=== PATIENT | female | born 1940 | race Caucasian/White ===

== ENCOUNTER 2017-09-06 09:10 | Inpatient (IN) | payer MEDICARE, BC ==
[2017-09-06 10:15] LABS: #Eosinphils 0.2 thou/uL (0.0-0.7); #Lymphocytes 0.8 thou/uL (1.20-3.40); #Monocytes 0.6 thou/uL (0.11-0.59); #Neutrophils 8.2 thou/uL (1.40-6.50); %Basophils 0.2 % (0.0-1.0); %Eosinophils 1.6 % (0.0-10.0); %Lymphocytes 8.2 % (21.0-51.0); %Monocytes 6.1 % (0.0-10.0); %Neutrophils 83.9 % (42.0-75.0); Hemoglobin 14.1 g/dL (12.0-16.0); Mean Corpuscular HGB CONC 34.1 g/dL (32.0-36.0); Mean Corpuscular Hemoglobin 29.6 pg (27.0-31.0); Mean Corpuscular Volume 86.8 fl (81.0-99.0); Mean Platelet Volume 8.2 fL (7.4-10.4); Platelet Count 259 thou/uL (130-400); RBC Distribution Width 12.5 % (11.5-14.5); Red Blood Cell (RBC) Count 4.78 mill/uL (4.20-5.40); White Blood Cell (WBC) Count 9.8 thou/uL (4.8-10.8)
[2017-09-06 10:17] LABS: Prothrombin Time 13.1 SEC (12.0-14.7)
[2017-09-06 10:18] LABS: PTT 32.4 SEC (22.9-36.1)
[2017-09-06 10:36] LABS: ALT (SGPT) 22 U/L (8-55); AST (SGOT) 23 U/L (5-34); Albumin 3.5 g/dL (3.4-4.8); Alkaline Phosphatase 89 U/L (40-150); Anion Gap 13 mmol/L (10-20); BUN (Urea Nitrogen) 16 mg/dL (9.8-20.1); Bilirubin, Total 0.4 mg/dL (0.2-1.2); CK (CPK) 214 U/L (29-168); Calc. Creatinine Clearance 0 mL/min (70-130); Calcium 8.6 mg/dL (7.8-10.44); Carbon Dioxide 22 mmol/L (23-31); Chloride 84 mmol/L (98-107); Estimated GFR-MDRD 37; Glucose 210 mg/dL (83-110); Potassium 4.7 mmol/L (3.5-5.1); Protein, Total 6.5 g/dL (6.0-8.3)
[2017-09-06 10:39] LABS: CKMB 4.6 ng/mL (0-6.6)
[2017-09-06 10:40] LABS: Sodium 114 mmol/L (136-145)
[2017-09-06 11:00] LABS: Troponin I Less than 0.010 ng/mL (< 0.028)
[2017-09-06] MEDS ORDERED: Ondansetron ODT 4 MG TAB ONE (11:00)
[2017-09-06 11:06] LABS: Bilirubin Negative (Negative); Blood, Urine Moderate (Negative); Clarity CLOUDY (Clear); Glucose, Urine (Dipstick) Negative (Negative); Leukocyte Trace (Negative); Nitrite Negative (Negative); Protein, Urine (Dipstick) 30 mg/dL (Neg-Trace); Specific Gravity, Urine 1.018 (1.002-1.036); Urobilinogen 0.2 mg/dL (0.2-1.0); pH, Urine 5.5 (5.0-9.0)
[2017-09-06 11:08] LABS: Bacteria/HPF None Seen HPF (None Seen); Hyaline Casts/LPF 7-10 HYALINE CAST LPF (0-3 Hyaline); Pathc Cast-AUWi Flag 1.59 (0-2.49); RBC/HPF 21-50 HPF (0-3); Squamous Epithelial 0-3 HPF (0-3); WBC/HPF 21-50 HPF (0-3)
--- NOTE | 2017-09-06 11:23 | RAD ---
PORTABLE UPRIGHT FRONTAL CHEST RADIOGRAPH: DATE: 09/06/17. COMPARISON: 12/04/16. HISTORY: Edema, volume overload. FINDINGS: Midline sternotomy wires and mediastinal clips are present. There is stable prominence of the cardia c silhouette and stable mild bilateral interstitial density. O pneumothorax or pleural fluid. No fo ella consolidation or alveolar edema. IMPRESSION: No acute findings - stable appearance of the chest. POS: [facility]
[2017-09-06] MEDS ORDERED: Nitrofurantoin Monohyd/M-Cryst 100 MG CAP PO SCH (12:00)
[2017-09-06 12:12] LABS: Anion Gap 14 mmol/L (10-20); BUN (Urea Nitrogen) 17 mg/dL (9.8-20.1); Calc. Creatinine Clearance 0 mL/min (70-130); Calcium 8.4 mg/dL (7.8-10.44); Carbon Dioxide 18 mmol/L (23-31); Chloride 86 mmol/L (98-107); Estimated GFR-MDRD 39; Glucose 186 mg/dL (83-110)
[2017-09-06 12:14] LABS: Sodium 113 mmol/L (136-145)
[2017-09-06] MEDS ORDERED: Furosemide 100 MG/10 ML VIAL ONE (12:52)
[2017-09-06] MEDS ORDERED: Senokot 8.6 MG TAB PO PRN (13:29)
[2017-09-06] MEDS ORDERED: Mag-Al 1200 mg/1200 mg/30 ML UDCUP PO PRN (13:29)
[2017-09-06] MEDS ORDERED: Melatonin 3 MG TAB PO PRN (13:29)
[2017-09-06] MEDS ORDERED: Ondansetron HCl/PF 4 MG/2 ML Vial IVP PRN (13:29)
[2017-09-06] MEDS ORDERED: Dextrose 50% Abboject 50 ML SYRINGE SLOW IVP PRN (13:29)
[2017-09-06] MEDS ORDERED: Guaifenesin DM 100-10/5 ML UDCUP PO PRN (13:29)
[2017-09-06] MEDS ORDERED: HumaLOG 300 UNITS/3 ML VIAL SC PRN (13:29)
[2017-09-06] MEDS ORDERED: Dextrose 5% in Water 1,000 ML IV PRN (13:29)
[2017-09-06] MEDS ORDERED: traZODone HCl 50 MG TAB PO PRN (13:29)
[2017-09-06] MEDS ORDERED: Furosemide 20 MG/2 ML VIAL SLOW IVP SCH (14:00)
[2017-09-06] MEDS ORDERED: ISOVUE-370 76%-LOCM 1 ML ONE (14:12)
[2017-09-06 15:29] VITALS: BMI 33.9
--- NOTE | 2017-09-06 16:07 | CT ---
CT ABDOMEN WITH CONTRAST CT PELVIS WITH CONTRAST: HISTORY: Bilateral leg swelling. Abdominal distention. Abdominal pain. COMPARISON: None. TECHNIQUE: Abdomen and pelvis CT is performed is performed with IV contrast. Enteric contrast was not administe red. Coronal reformatted images are submitted for interpretation. FINDINGS: ABDOMEN CT: Patchy and ground-glass opacities of the lung bases. Heart size is normal. No pericardial effusion. The descending thoracic aorta and abdominal aorta have an overall normal caliber. No periaortic fa t stranding. Intra- and extrahepatic portal vein is patent. Surgically absent gallbladder. Hypoattenuation of the liver likely due to hepatic steatosis. Spleen, pancreas, and adrenal glands h ave appropriate enhancement. Nonobstructing calcification in the right renal pelvis measuring 1 cm. Bilaterally, no obstructive u ropathy. Symmetric attenuation of the psoas muscles. No gastrohepatic, retrocrural, or periportal l ymphadenopathy. No mesenteric mass, lymphadenopathy, free air, or free fluid. Limited evaluation of the alimentary canal by lack of oral contrast. Gastric mucosa, duodenum, and m ultiple normal-caliber small bowel loops are noted. Ileocecal junction is normal. Normal-caliber re trocecal appendix. Copious amount of fecal material predominantly in the left hemicolon. Correlate for constipation. Significant fecal material is noted in the distal sigmoid colon and rectum. There is mild mucosal thinning. Minimal stranding of the presacral fat. Correlate for stercoral colitis. PELVIC CT: Rightward deviation of the uterus presumed to be due to the mildly prominent urinary bladder. No pel mikey lymphadenopathy, free air, or free fluid. No obvious masses. Bilateral pars defects with anterolisthesis are noted in the L4-L5 level. There is edema involving both lower extremity subcutaneous fat. There is more focal fluid in the lef t gluteal subcutaneous fat, measuring 10 cm. IMPRESSION: 1. Copious amount of fecal material. Constipation. Possible stercoral colitis. 2. Normal-caliber appendix. 3. Nonobstructing calculus in the right renal pelvis. On 09/06/17 at 11:02, findings given to Minerva Salas. CODE CR POS: [facility]
[2017-09-06 16:28] LABS: Anion Gap 16 mmol/L (10-20); BUN (Urea Nitrogen) 18 mg/dL (9.8-20.1); Calc. Creatinine Clearance 55 mL/min (70-130); Calcium 8.4 mg/dL (7.8-10.44); Carbon Dioxide 18 mmol/L (23-31); Chloride 88 mmol/L (98-107); Estimated GFR-MDRD 38; Glucose 161 mg/dL (83-110); Potassium 5.1 mmol/L (3.5-5.1)
[2017-09-06 16:30] LABS: Sodium 117 mmol/L (136-145)
[2017-09-06 18:09] LABS: Potassium, Urine 17.6 mmol/L
--- NOTE | 2017-09-06 18:55 | HP ---
REASON FOR ADMISSION: Hyponatremia, nausea and vomiting. HISTORY OF PRESENTING ILLNESS: The patient gives history of vomiting 3 times from last night. She also went to see a primary care physician on Thursday for increasing swelling in her lower extremities. She was prescribed Lasix 20 mg daily, along with potassium tablets. The patient started this on Thursday. The patient has 24/7 caregiver and the caregiver at bedside adds that she normally drinks a lot of water and has been drinking even more now after she was started on Lasix. Also, the caregiver does mention that she has not been passing urine as much as she does before. Like from 1:00 p.m. to 10:00 p.m. yesterday, she only went 2 times to restroom where she normally goes 4 times. There are no complaints of chest pain, palpitation, PND or orthopnea. Patient is hard of hearing, but is oriented well. The is also here at bedside. Further workup in the ER revealed sodium of 114 with creatinine of 1.39 and serum glucose of 210. No complaints of chest pain, palpitation, PND or orthopnea. The patient is completely on the bed and rarely pivots to get into her wheelchair from last 2 years or so per . PAST MEDICAL AND SURGICAL HISTORY: History of prior CVA in 2016. From then on , patient is wheelchair bound, diabetes mellitus type 2, diastolic dysfunction. Echo done in 11/2016 shows EF of 50%-55% with diastolic dysfunction, obesity, hypertension, macular degeneration with blindness, sensorineural hearing loss, dyslipidemia, coronary artery disease, retinal detachment with repair and left eye cataract surgery, CABG, cholecystectomy. CURRENT MEDICATIONS: Patient is on aspirin 81 mg p.o. daily, Tresiba 35 units subcu daily, Colace 100 mg twice daily, Plavix 75 mg daily, Celexa 10 mg daily, Coreg 12.5 mg twice daily, levothyroxine 100 mcg p.o. q.a.m., cranberry extract 4200 mg p.o. daily, Centrum Silver 1 tab daily, vitamin C 1000 mg daily, vitamin D 2000 units daily, Claritin 10 mg daily, trazodone 50 mg p.o. at bedtime. ALLERGIES: KEFLEX, MORPHINE, TYLENOL, CODEINE. PERSONAL HISTORY: Does not abuse alcohol or drugs. No history of smoking. FAMILY HISTORY: Father had history of heart disease and COPD. Mother had degenerative arthritis. CODE STATUS: DNR. This was discussed with patient and her at bedside. Power of certified activities director is her . REVIEW OF SYSTEMS: The following complete review of systems was negative, unless otherwise mentioned in the HPI or below: Constitutional: Weight loss or gain, ability to conduct usual activities. Skin: Rash, itching. Eyes: Double vision, pain. ENT/Mouth: Nose bleeding, neck stiffness, pain, tenderness. Cardiovascular: Palpitations, dyspnea on exertion, orthopnea. Respiratory: Shortness of breath, wheezing, cough, hemoptysis, fever or night sweats. Gastrointestinal: Poor appetite, abdominal pain, heartburn, nausea, vomiting, constipation, or diarrhea. Genitourinary: Urgency, frequency, dysuria, nocturia. Musculoskeletal: Pain, swelling. Neurologic/Psychiatric: Anxiety, depression. Allergy/Immunologic: Skin rash, bleeding tendency. PHYSICAL EXAMINATION: GENERAL: The patient is a 76-year-old female who is currently not in any acute distress. VITAL SIGNS: Blood pressure 168/86, pulse 66 per minute, respiratory rate 18 per minute, temperature 97.6 degrees Fahrenheit, saturating 96% on room air. NECK: Supple, no elevated JVD. EYES: Extraocular muscles intact. Pupils reacting to light. ORAL CAVITY: Mucous membranes are moist. No exudates or congestion. CARDIOVASCULAR SYSTEM: S1, S2 heard. Regular rhythm. RESPIRATORY SYSTEM: Air entry 1+ bilateral. No rales or rhonchi. ABDOMEN: Soft, bowel sounds heard. No tenderness, rigidity or guarding. EXTREMITIES: There is 2+ peripheral edema, no calf tenderness. VASCULAR SYSTEM: Peripheral pulses 1+ bilateral, no ischemic ulcerations or gangrene. CENTRAL NERVOUS SYSTEM: Patient has no gross focal signs seen at present. She moves all 4 extremities. PSYCHIATRIC SYSTEM: The patient's mood is euthymic. No hallucinations or delusions. IMAGING DATA AND LABORATORY DATA: EKG done shows sinus rhythm at 62 beats per minute. There are T inversion seen in V5, V6, II, III and aVF. Sodium 114, potassium 4.7, chloride 84, serum bicarbonate 22, BUN 16, creatinine 1.39. Serum glucose 210. CK level is 214. Troponin I is negative. BNP is 76. Albumin is 3.5. Liver enzymes within normal limits. UA done shows trace leukoesterase, with 21-50 WBCs, no bacteria seen. White count of 9, hemoglobin and hematocrit 14 and 41, platelet count 259 with 83% neutrophils. PT, INR, and PTT within normal limits. Chest x-ray done shows no acute cardiopulmonary abnormalities. CT of the abdomen and pelvis, official reports are pending at present. CLINICAL IMPRESSION AND PLAN: The patient will be admitted to medical floor for hyponatremia with 3 episodes of vomiting from last evening. She also has anasarca. We will continue her on aspirin, Coreg, Celexa, Synthroid, melatonin and trazodone as before along with Lipitor, Plavix, cranberry extract, and Colace as well. She will be on Lasix 20 mg IV q.12 hourly. I have requested Dr. Bui for Nephrology consultation for hyponatremia. We will obtain urine and serum osmolality, uric acid and urine electrolytes stat. We will continue to closely monitor her on medical floor. ADELINA
[2017-09-06] MEDS: Carvedilol 6.25 MG TAB PO SCH (21:18)
[2017-09-06] MEDS: Famotidine 20 MG TAB PO SCH (21:18)
[2017-09-06] MEDS: Atorvastatin Calcium 10 MG TAB PO SCH (21:18)
[2017-09-06] MEDS: Docusate 100 MG CAP PO SCH (21:27)
--- NOTE | 2017-09-06 23:01 | CON ---
DATE OF CONSULTATION: 09/06/2017 CONSULTING PHYSICIAN: Ramya Ocampo M.D. REQUESTING PHYSICIAN: Carrie Adams M.D. REASON FOR CONSULTATION: Severe hyponatremia. IMPRESSION: 1. Severe hyponatremia. This is likely in the context of poor osmolar intake compounded by hypervol emic dilutional hyponatremia. 2. Confusion. This is likely related to this degree of hyponatremia. PLAN: 1. The patient to benefit from gentle diuresis with a loop diuretic agents. 2. The patient to be on a high protein diet in the way of animal meat. We change this patient's t to regular with double portion of meat. 3. Monitor the sodium level closely. 4. Further management to be dependent on the clinical course. 5. Check thyroid stimulating hormone level. HISTORY OF PRESENT ILLNESS: A 76-year-old female patient who presented here because of leg swelling, abdominal distention and pain, and on evaluation, was noted with severe low sodium with sodium level of 114, but transiently went down to 113. The patient's caregiver also noted some confusion in this patient. As a result of these findings, decision has been taken to involve Renal in the management of this case. The patient could not give me much of any history as the patient is very sleepy though arousable, but not articulating history very well, got the history from the spouse, the caregiver. PAST MEDICAL HISTORY: Include severe dyslipidemia, hypertension, hypothyroidism. MEDICATIONS: Reviewed as documented on [facility]. ALLERGIES: KEFLEX, MORPHINE and TYLENOL. FAMILY HISTORY: Not significantly related to presenting illness. SOCIAL HISTORY: No alcohol, no tobacco or illicit drug use. REVIEW OF SYSTEMS: Highly limited given the clinical condition of this patient. LABORATORY INVESTIGATION: Significant for sodium that dipped down to 113. PHYSICAL EXAMINATION: GENERAL: The patient was found to be sleepy, but arousable noted with the following vital signs. VITAL SIGNS: Afebrile with temperature 97.3, pulse 59, respiratory rate of 16, O2 sat 97% with a blo od pressure of 158/82. HEENT: On admission, unremarkable. Moist oral mucosa. NECK: Supple, no conjunctival injection or icterus. CARDIOVASCULAR SYSTEM: First and second heart sounds were heard. DIGESTIVE SYSTEM: Revealed an obese abdomen. EXTREMITIES: Showed 2 to 3+ peripheral edema. NEUROLOGIC: Somnolent, but no lateralizing sign. SUMMARY: A 76-year-old female patient who presented here and was noted to have severe hyponatremia. Thank you for this consultation. We will follow with you.
[2017-09-07 01:14] LABS: Anion Gap 13 mmol/L (10-20); BUN (Urea Nitrogen) 19 mg/dL (9.8-20.1); Calc. Creatinine Clearance 58 mL/min (70-130); Calcium 8.8 mg/dL (7.8-10.44); Carbon Dioxide 22 mmol/L (23-31); Chloride 88 mmol/L (98-107); Estimated GFR-MDRD 41; Glucose 147 mg/dL (83-110); Potassium 4.4 mmol/L (3.5-5.1)
[2017-09-07 01:27] LABS: Sodium 119 mmol/L (136-145)
[2017-09-07 05:15] LABS: Hemoglobin 13.6 g/dL (12.0-16.0); Mean Corpuscular HGB CONC 33.4 g/dL (32.0-36.0); Mean Corpuscular Hemoglobin 28.9 pg (27.0-31.0); Mean Corpuscular Volume 86.6 fl (81.0-99.0); Platelet Count 256 thou/uL (130-400); RBC Distribution Width 12.6 % (11.5-14.5); White Blood Cell (WBC) Count 10.1 thou/uL (4.8-10.8)
[2017-09-07 05:16] LABS: #Eosinphils 0.2 thou/uL (0.0-0.7); #Lymphocytes 1.1 thou/uL (1.20-3.40); #Monocytes 0.9 thou/uL (0.11-0.59); #Neutrophils 7.9 thou/uL (1.40-6.50); %Basophils 0.4 % (0.0-1.0); %Eosinophils 1.6 % (0.0-10.0); %Monocytes 8.7 % (0.0-10.0); %Neutrophils 78.3 % (42.0-75.0); Mean Platelet Volume 8.3 fL (7.4-10.4)
[2017-09-07] MEDS ORDERED: Levothyroxine Sodium 100 MCG TAB PO SCH ×2 (06:00→12:46)
[2017-09-07] MEDS: Furosemide 40 MG/4 ML VIAL SLOW IVP SCH ×2 (06:06→14:02)
[2017-09-07 08:27] LABS: Anion Gap 14 mmol/L (10-20); BUN (Urea Nitrogen) 17 mg/dL (9.8-20.1); Calc. Creatinine Clearance 56 mL/min (70-130); Calcium 8.5 mg/dL (7.8-10.44); Carbon Dioxide 23 mmol/L (23-31); Chloride 90 mmol/L (98-107); Estimated GFR-MDRD 39; Glucose 104 mg/dL (83-110); Potassium 4.3 mmol/L (3.5-5.1); Sodium 123 mmol/L (136-145)
[2017-09-07] MEDS: Lactinex Tablet PO SCH (08:27)
[2017-09-07] MEDS: Famotidine 20 MG TAB PO SCH (08:27)
[2017-09-07] MEDS: Multivit, Therapeutic 1 TAB PO SCH (08:27)
[2017-09-07] MEDS: Ascorbic Acid 500 mg Chewable Tablet PO SCH (08:27)
[2017-09-07] MEDS: Clopidogrel Bisulfate 75 MG TAB PO SCH (08:28)
[2017-09-07] MEDS: Carvedilol 6.25 MG TAB PO SCH ×2 (08:28→20:54)
[2017-09-07] MEDS: Citalopram 10 MG TAB PO SCH (08:28)
[2017-09-07] MEDS: Docusate 100 MG CAP PO SCH ×2 (08:28→20:54)
[2017-09-07] MEDS: Enoxaparin Sodium 40 MG/0.4 ML SYRINGE SC SCH (08:29)
[2017-09-07] MEDS ORDERED: CRANBERRY FRUIT EXTRACT 4200 MG PO SCH (09:00)
[2017-09-07] MEDS ORDERED: Non-Formulary Item 1 EACH (Insulin Glargine,Hum.Rec.Anlog [Toujeo Solostar] 40 UNIT) SC SCH (09:00)
[2017-09-07] MEDS: Insulin Glargine 40 UNITS in Pre-Filled Syringe SC SCH (09:31)
[2017-09-07] MEDS: HumaLOG 300 UNITS/3 ML VIAL SC PRN (12:42)
--- NOTE | 2017-09-07 12:49 | PDOC.PN ---
- Subjective Encounter Start Date: 09/07/17 Encounter Start Time: 12:46 Patient seen and examined, states she has some back pain and also notes that her legs are swollen and painful, but better than yesterday, at bedside , all questions answered. - Objective Resuscitation Status: Resuscitation Status DNR:Do Not Resuscitate Vital Signs & Weight: Vital Signs (12 hours) Temp Pulse Resp BP BP Pulse Ox 09/07/17 08:28 128/61 09/07/17 08:00 97.9 F 65 18 128/61 100 Weight Admit Weight 216 lb 9.6 oz Weight 216 lb 9.6 oz I&O: 09/06/17 09/07/17 09/08/17 06:59 06:59 06:59 Intake Total 214 Output Total 2250 Balance -2035 Result Diagrams: 09/07/17 04:32 09/07/17 04:25 Additional Labs: Accuchecks 09/07/17 09/06/17 06:19 17:09 POC Glucose 124 H 153 H Phys Exam - Physical Examination Constitutional: NAD HEENT: moist MMs, sclera anicteric visually impaired Neck: no nodes, no JVD, supple, full ROM Respiratory: no wheezing, no rales, no rhonchi Cardiovascular: RRR, no significant murmur, no rub Gastrointestinal: soft, non-tender, no distention, positive bowel sounds Musculoskeletal: pulses present, edema present (2+ pitting edema B/L LE) Neurological: non-focal, normal sensation Psychiatric: normal affect, A&O x 3 Skin: no rash, normal turgor Dx/Plan (1) Hyponatremia Code(s): E87.1 - HYPO-OSMOLALITY AND HYPONATREMIA Status: Acute (2) CAD (coronary artery disease) Code(s): I25.10 - ATHSCL HEART DISEASE OF [place] CORONARY ARTERY W/O ANG PCTRS Status: Chronic (3) DM type 2 (diabetes mellitus, type 2) Status: Chronic (4) Dyslipidemia Code(s): E78.5 - HYPERLIPIDEMIA, UNSPECIFIED Status: Chronic (5) HTN (hypertension) Code(s): I10 - ESSENTIAL (PRIMARY) HYPERTENSION Status: Chronic Qualifiers: (6) Hypothyroidism Code(s): E03.9 - HYPOTHYROIDISM, UNSPECIFIED Status: Chronic - Plan * Na levels at 123 for now, cont current plan of diuretic + normal saline * TSH elevated, will increase dosage of levothyrxine to 125mcg, patient states her thyroid hasn't been checked in years * pain control * labs in AM * DC plans in 24-48hrs for now, if patient doing well, ok with renal and labs are acceptable * case and plan d/w patient and at length, they understand and agree with this plan
[2017-09-07] MEDS ORDERED: Levothyroxine Sodium 125 MCG TAB PO SCH (13:00)
--- NOTE | 2017-09-07 15:50 | PRG ---
DATE OF SERVICE: 09/07/2017 SUBJECTIVE: The patient was seen and examined, seems to be doing better, sleepy. PHYSICAL EXAMINATION: VITAL SIGNS: Afebrile with temperature 97.9, pulse 65, respiratory 18, blood pressure 128/61, O2 sat 100% on room air. HEENT: Unremarkable with moist oral mucosa. No conjunctival injection or icterus. NECK: Supple. CARDIOVASCULAR: First and second heart sounds were heard. RESPIRATORY: Clear to auscultation. DIGESTIVE SYSTEM: Revealed a benign abdomen with positive bowel sounds. EXTREMITIES: Showed some peripheral edema. LABORATORY INVESTIGATION: Showed sodium of 123, creatinine 1.32. IMPRESSION: 1. Hyponatremia in the context of dilutional hyponatremia and poor osmolar intake. 2. Chronic kidney disease stage 3. PLAN: 1. We will continue with loop diuresis. 2. Continue to monitor the sodium level. 3. Continue with high protein intake. 4. Further management to be dependent on the clinical course.
[2017-09-07] MEDS: Atorvastatin Calcium 10 MG TAB PO SCH (20:54)
[2017-09-08] MEDS: Levothyroxine Sodium 125 MCG TAB PO SCH (05:57)
[2017-09-08] MEDS: Furosemide 40 MG/4 ML VIAL SLOW IVP SCH (05:57)
[2017-09-08] MEDS ORDERED: Levothyroxine Sodium 100 MCG TAB PO SCH (06:00)
[2017-09-08] MEDS: Docusate 100 MG CAP PO SCH ×2 (08:46→20:06)
[2017-09-08] MEDS: Ascorbic Acid 500 mg Chewable Tablet PO SCH (08:46)
[2017-09-08] MEDS: Citalopram 10 MG TAB PO SCH (08:46)
[2017-09-08] MEDS: Multivit, Therapeutic 1 TAB PO SCH (08:46)
[2017-09-08] MEDS: Lactinex Tablet PO SCH (08:46)
[2017-09-08] MEDS: Clopidogrel Bisulfate 75 MG TAB PO SCH (08:46)
[2017-09-08] MEDS: Famotidine 20 MG TAB PO SCH (08:47)
[2017-09-08] MEDS: Carvedilol 6.25 MG TAB PO SCH ×2 (08:47→20:06)
[2017-09-08] MEDS: Enoxaparin Sodium 40 MG/0.4 ML SYRINGE SC SCH (08:48)
[2017-09-08] MEDS: Insulin Glargine 40 UNITS in Pre-Filled Syringe SC SCH (08:58)
[2017-09-08] MEDS: Acetaminophen 325 MG TAB PO PRN (09:34)
--- NOTE | 2017-09-08 11:37 | PRG ---
DATE OF SERVICE: 09/08/2017 The patient was seen and examined, much more alert today. No labs yet. PHYSICAL EXAMINATION: VITAL SIGNS: Afebrile, temperature 98.4, pulse 65, respiratory 16, O2 sat 97% with a blood pressure 146/67. HEENT: Unremarkable. Moist oral mucosa. Neck was supple. No conjunctival injection or icterus. CARDIOVASCULAR: First and second heart sounds were heard. RESPIRATORY: Clear to auscultation. DIGESTIVE: Revealed a benign abdomen. EXTREMITIES: Showed some edema. SKIN: No new gross rash. LYMPHATICS: No peripheral lymphadenopathy. IMPRESSION: 1. Hyponatremia seems to be improving. Unfortunately, no blood work today yet. 2. Hypervolemia responding to diuretics. PLAN: 1. Change the diuretics to oral diuretics. 2. Discontinue Harmon catheterization. 3. Basic metabolic panel ordered. 4. Further management to be dependent on the clinical course.
[2017-09-08 12:07] LABS: Anion Gap 13 mmol/L (10-20); BUN (Urea Nitrogen) 20 mg/dL (9.8-20.1); Calc. Creatinine Clearance 50 mL/min (70-130); Calcium 8.6 mg/dL (7.8-10.44); Carbon Dioxide 25 mmol/L (23-31); Chloride 96 mmol/L (98-107); Estimated GFR-MDRD 37; Glucose 185 mg/dL (83-110); Sodium 130 mmol/L (136-145)
[2017-09-08] MEDS: HumaLOG 300 UNITS/3 ML VIAL SC PRN ×2 (12:10→16:08)
--- NOTE | 2017-09-08 12:42 | PDOC.PN ---
- Subjective Encounter Start Date: 09/08/17 Encounter Start Time: 12:40 Patient seen and examined, states that her bowel movements are becoming more formed, no pain or issues, all questions answered. - Objective Resuscitation Status: Resuscitation Status DNR:Do Not Resuscitate Vital Signs & Weight: Vital Signs (12 hours) Temp Pulse Resp BP BP BP Pulse Ox 09/08/17 11:27 98.4 F 61 16 146/76 H 94 L 09/08/17 08:47 146/67 H 09/08/17 07:47 98.4 F 65 16 146/67 H 97 09/08/17 07:30 97.8 F 70 18 09/08/17 05:09 97.8 F 70 18 169/76 H 100 Weight Admit Weight 216 lb 9.6 oz Weight 202 lb 1 oz I&O: 09/07/17 09/08/17 09/09/17 06:59 06:59 06:59 Intake Total 214 1460 Output Total 2250 4750 Balance -2035 Result Diagrams: 09/07/17 04:32 09/08/17 11:26 Additional Labs: Accuchecks 09/08/17 09/08/17 09/07/17 11:26 05:19 21:31 POC Glucose 188 H 88 119 H 09/07/17 09/07/17 16:36 11:32 POC Glucose 143 H 252 H Phys Exam - Physical Examination Constitutional: NAD HEENT: moist MMs, sclera anicteric visually impaired Neck: no nodes, no JVD, supple, full ROM Respiratory: no wheezing, no rales, no rhonchi Cardiovascular: RRR, no significant murmur, no rub Gastrointestinal: soft, non-tender, no distention, positive bowel sounds Musculoskeletal: pulses present, edema present (trace) Neurological: non-focal, normal sensation Psychiatric: normal affect, A&O x 3 Skin: no rash, normal turgor Dx/Plan (1) Hyponatremia Code(s): E87.1 - HYPO-OSMOLALITY AND HYPONATREMIA Status: Acute (2) CAD (coronary artery disease) Code(s): I25.10 - ATHSCL HEART DISEASE OF [place] CORONARY ARTERY W/O ANG PCTRS Status: Chronic (3) DM type 2 (diabetes mellitus, type 2) Status: Chronic (4) Dyslipidemia Code(s): E78.5 - HYPERLIPIDEMIA, UNSPECIFIED Status: Chronic (5) HTN (hypertension) Code(s): I10 - ESSENTIAL (PRIMARY) HYPERTENSION Status: Chronic Qualifiers: (6) Hypothyroidism Code(s): E03.9 - HYPOTHYROIDISM, UNSPECIFIED Status: Chronic - Plan * Na levels normalizing well, Cr levels normalizing well * C-diff results pending * rash in diaper noted, likely due to frequent bowel movements, nursing team monitoring closely, patient to be cleaned with a moist towel and powder to be used to keep area dry * renal also following * DC plans in 24-48hrs once cleared by renal and if C-diff negative * case and plan d/w patient and at length, they understand and agree with this plan
[2017-09-08] MEDS ORDERED: Furosemide 20 MG TAB PO SCH (14:00)
[2017-09-08] MEDS: Furosemide 40 MG TAB PO SCH (14:40)
[2017-09-08] MEDS: Atorvastatin Calcium 10 MG TAB PO SCH (20:06)
[2017-09-09] MEDS: Acetaminophen 325 MG TAB PO PRN ×2 (00:55→11:27)
[2017-09-09] MEDS: Levothyroxine Sodium 125 MCG TAB PO SCH (05:00)
[2017-09-09 05:35] LABS: Anion Gap 11 mmol/L (10-20); BUN (Urea Nitrogen) 22 mg/dL (9.8-20.1); Calc. Creatinine Clearance 61 mL/min (70-130); Calcium 8.8 mg/dL (7.8-10.44); Carbon Dioxide 25 mmol/L (23-31); Chloride 96 mmol/L (98-107); Estimated GFR-MDRD 47; Glucose 225 mg/dL (83-110); Potassium 4.1 mmol/L (3.5-5.1); Sodium 128 mmol/L (136-145)
[2017-09-09] MEDS: Multivit, Therapeutic 1 TAB PO SCH (08:16)
[2017-09-09] MEDS: Lactinex Tablet PO SCH (08:16)
[2017-09-09] MEDS: Furosemide 40 MG TAB PO SCH ×2 (08:16→16:33)
[2017-09-09] MEDS: Docusate 100 MG CAP PO SCH ×2 (08:16→20:35)
[2017-09-09] MEDS: Ascorbic Acid 500 mg Chewable Tablet PO SCH (08:17)
[2017-09-09] MEDS: Famotidine 20 MG TAB PO SCH ×2 (08:17→20:38)
[2017-09-09] MEDS: Clopidogrel Bisulfate 75 MG TAB PO SCH (08:18)
[2017-09-09] MEDS: Enoxaparin Sodium 40 MG/0.4 ML SYRINGE SC SCH (08:18)
[2017-09-09] MEDS: Insulin Glargine 40 UNITS in Pre-Filled Syringe SC SCH (08:19)
[2017-09-09] MEDS: Carvedilol 6.25 MG TAB PO SCH ×2 (08:20→20:37)
[2017-09-09] MEDS: Citalopram 10 MG TAB PO SCH (08:27)
[2017-09-09] MEDS: HumaLOG 300 UNITS/3 ML VIAL SC PRN ×2 (11:26→16:33)
[2017-09-09] MEDS ORDERED: Naproxen 500 MG TAB PO PRN (12:11)
--- NOTE | 2017-09-09 14:27 | EKG ---
Test Reason : CHECKUP Blood Pressure : / mmHG Vent. Rate : 062 BPM Atrial Rate : 062 BPM P-R Int : 218 ms QRS Dur : 086 ms QT Int : 432 ms P-R-T Axes : 049 044 204 degrees QTc Int : 438 ms Sinus rhythm with 1st degree A-V block No STEMI Abnormal ECG Confirmed by MARIO ALBERTO HAYNES, MARI ([id number]), communications editor JEY ANDRE ([id number]) on 09/09/2017 2:27:38 PM Referred By: Confirmed By:MARI LLANES MD
--- NOTE | 2017-09-09 14:28 | PDOC.PN ---
- Subjective Encounter Start Date: 09/09/17 Encounter Start Time: 13:15 PAtient is seen today sleeping comfortably, discussed with at bedside, explained pt has low Sodium which trending down, need to be started on IV fluids. - Objective Resuscitation Status: Resuscitation Status DNR:Do Not Resuscitate MAR Reviewed: Yes Vital Signs & Weight: Vital Signs (12 hours) Temp Pulse Resp BP 09/09/17 08:00 97.8 F 67 18 09/09/17 07:50 97.8 F 67 18 160/73 H Weight Admit Weight 216 lb 9.6 oz Weight 198 lb 2 oz I&O: 09/08/17 09/09/17 09/10/17 06:59 06:59 06:59 Intake Total 1460 1260 Output Total 4750 1000 Balance -3290 260 Result Diagrams: 09/07/17 04:32 09/09/17 04:17 Additional Labs: Accuchecks 09/09/17 09/08/17 09/08/17 11:07 20:59 16:09 POC Glucose 308 H 270 H 200 H Radiology Reviewed by me: Yes Phys Exam - Physical Examination HEENT: PERRLA, moist MMs Neck: no nodes, no JVD Respiratory: no wheezing, no rales Cardiovascular: RRR, no significant murmur Gastrointestinal: soft, non-tender Musculoskeletal: no edema Neurological: non-focal, normal sensation Lymphatic: no nodes Psychiatric: normal affect, A&O x 3 Dx/Plan (1) Hyponatremia Code(s): E87.1 - HYPO-OSMOLALITY AND HYPONATREMIA Status: Acute Comment: will start IV fluids 0.9% NS, she is on docusate daily will d/c that, and she is likely loosing sodium in stool. (2) Diarrhea Code(s): R19.7 - DIARRHEA, UNSPECIFIED Status: Acute Comment: improved, so No Cdiff testing needed if stool is formed. (3) Encephalopathy Code(s): G93.40 - ENCEPHALOPATHY, UNSPECIFIED Status: Acute Comment: persitant likely from Dehydration and Hyponatremia. (4) CAD (coronary artery disease) Code(s): I25.10 - ATHSCL HEART DISEASE OF [place] CORONARY ARTERY W/O ANG PCTRS Status: Chronic Comment: stbale. (5) CVA (cerebral vascular accident) Code(s): I63.9 - CEREBRAL INFARCTION, UNSPECIFIED Status: Chronic Qualifiers: CVA mechanism: unspecified Qualified Code(s): I63.9 - Cerebral infarction, unspecified Comment: mild left hemiparesis (6) DM type 2 (diabetes mellitus, type 2) Status: Chronic Comment: continue on SSI, as needed. (7) Dyslipidemia Code(s): E78.5 - HYPERLIPIDEMIA, UNSPECIFIED Status: Chronic (8) HTN (hypertension) Code(s): I10 - ESSENTIAL (PRIMARY) HYPERTENSION Status: Chronic Qualifiers: Comment: stbale, well controlled. (9) Hypothyroidism Code(s): E03.9 - HYPOTHYROIDISM, UNSPECIFIED Status: Chronic - Plan cont current plan of care, plan discussed w/ family, PT/OT, social human services assistants, out of bed/ambulate, DVT proph w/SCDs * . Review of Systems - Review of Systems Constitutional: weakness Eyes: negative: Pain, Vision Change, Conjunctivae Inflammation, Eyelid Inflammation, Redness, Other ENT: negative: Ear Pain, Ear Discharge, Nose Pain, Nose Discharge, Nose Congestion, Mouth Pain, Mouth Swelling, Throat Pain, Throat Swelling, Other Respiratory: negative: Cough, Dry, Shortness of Breath, Hemoptysis, SOB with Excertion, Pleuritic Pain, Sputum, Wheezing Musculoskeletal: negative: Neck Pain, Shoulder Pain, Arm Pain, Back Pain, Hand Pain, Leg Pain, Foot Pain, Other - Medications/Allergies Allergies/Adverse Reactions: Allergies Allergy/AdvReac Type Severity Reaction Status Date / Time acetaminophen Allergy Verified 09/06/17 15:24 [From Tylenol-Codeine #3] benzonatate Allergy Verified 07/25/15 23:26 [From Tessalon Perles] cephalexin monohydrate Allergy Verified 07/23/15 12:16 [From Keflex] codeine Allergy Verified 07/23/15 12:16 gabapentin Allergy Verified 12/05/16 19:21 metformin Allergy pt doesn't Verified 09/06/17 15:24 like it morphine Allergy Verified 07/23/15 12:16 Sulfa (Sulfonamide Allergy Verified 07/25/15 23:26 Antibiotics) Medications: Current Medications Acetaminophen (Tylenol) 650 mg PO Q4H PRN PRN Reason: Headache/Fever or Pain Last Admin: 09/09/17 11:27 Dose: 650 mg Acidophilus (Floranex) 1 tab PO DAILY [facility] Last Admin: 09/09/17 08:16 Dose: 1 tab Al Hydroxide/Mg Hydroxide (Maalox) 30 ml PO Q6H PRN PRN Reason: Heartburn or Indigestion Ascorbic Acid (Vitamin C) 1,000 mg PO DAILY [facility] Last Admin: 09/09/17 08:17 Dose: 1,000 mg Aspirin (Aspirin Chewable) 81 mg PO DAILY [facility] Last Admin: 09/09/17 08:17 Dose: 81 mg Atorvastatin Calcium (Lipitor) 10 mg PO HS [facility] Last Admin: 09/08/17 20:06 Dose: 10 mg Carvedilol (Coreg) 6.25 mg PO BID [facility] Last Admin: 09/09/17 08:20 Dose: 6.25 mg Citalopram Hydrobromide (Celexa) 10 mg PO DAILY [facility] Last Admin: 09/09/17 08:27 Dose: Not Given Clopidogrel Bisulfate (Plavix) 75 mg PO QAM [facility] Last Admin: 09/09/17 08:18 Dose: 75 mg Dextrose/Water (Dextrose 50%) 25 gm SLOW IVP PRN PRN PRN Reason: Hypoglycemia Docusate Sodium (Colace) 100 mg PO BID [facility] Last Admin: 09/09/17 08:16 Dose: 100 mg Enoxaparin Sodium (Lovenox) 40 mg SC 0900 [facility] Last Admin: 09/09/17 08:18 Dose: 40 mg Famotidine (Pepcid) 20 mg PO DAILY [facility] Last Admin: 09/09/17 08:17 Dose: 20 mg Furosemide (Lasix) 40 mg PO 0900,1400 [facility] Last Admin: 09/09/17 08:16 Dose: 40 mg Glucagon (Glucagon) 1 mg IM PRN PRN PRN Reason: Hypoglycemia Guaifenesin/Dextromethorphan (Robitussin Dm) 15 ml PO Q4H PRN PRN Reason: Cough Dextrose/Water (D5w) 1,000 mls @ 0 mls/hr IV .Q0M PRN; As Directed PRN Reason: Hypoglycemia Insulin Glargine 40 units/ (Miscellaneous Medication) 0.4 mls @ 0 mls/hr SC QAM [facility] Last Admin: 09/09/17 08:19 Dose: 0.4 mls Insulin Human Lispro (Humalog) 0 units SC .MODERATE SLIDING SC PRN PRN Reason: Moderate Correctional Scale Last Admin: 09/09/17 11:26 Dose: 8 unit Insulin Human Lispro (Humalog) 0 units SC .BEDTIME SLIDING SC PRN PRN Reason: Bedtime Correctional Scale Levothyroxine Sodium (Synthroid) 125 mcg PO 0600 [facility] Last Admin: 09/09/17 05:00 Dose: 125 mcg Melatonin (Melatonin) 3 mg PO HS PRN PRN Reason: insomnia Multivitamins (Theragran) 1 tab PO DAILY [facility] Last Admin: 09/09/17 08:16 Dose: 1 tab Naproxen (Naprosyn) 250 mg PO Q6H PRN PRN Reason: Pain Ondansetron HCl (Zofran) 4 mg IVP Q6H PRN PRN Reason: Nausea/Vomiting Senna (Senokot) 2 tab PO HSPRN PRN PRN Reason: Constipation Sodium Chloride (Flush - Normal Saline) 10 ml IVF Q12HR [facility] Last Admin: 09/09/17 08:27 Dose: 10 ml Sodium Chloride (Flush - Normal Saline) 10 ml IVF PRN PRN PRN Reason: Saline Flush Trazodone HCl (Desyrel) 50 mg PO HS PRN PRN Reason: Insomnia
[2017-09-09] MEDS ORDERED: Refresh (Polyvinyl Alcohol 1.4%/Povidone 0.6%) Opth Drops EA EYE PRN (17:39)
--- NOTE | 2017-09-09 20:02 | PRG ---
DATE OF SERVICE: 09/09/2017 SUBJECTIVE: The patient was seen and examined and noted with the following: OBJECTIVE: VITAL SIGNS: Afebrile with temperature 97.5, pulse 55, respiratory rate of 16, O2 saturation of 97% with blood pressure 138/54. HEENT: Unremarkable with moist oral mucosa. Neck is supple. No conjunctival injection or icterus. CARDIOVASCULAR SYSTEM: First and second heart sounds were heard. RESPIRATORY SYSTEM: Clear to auscultation. DIGESTIVE SYSTEM: Revealed a benign abdomen with positive bowel sounds. EXTREMITIES: Showed improved peripheral edema. LABORATORY INVESTIGATIONS: Showed sodium of 128, creatinine 1.12, BUN of 22. IMPRESSION: Hyponatremia, which has responded to diuretic treatment. PLAN: 1. We will continue current renal supportive measures. 2. The patient encouraged to continue to eat more protein diet.
[2017-09-09] MEDS: Atorvastatin Calcium 10 MG TAB PO SCH (20:37)
[2017-09-10] MEDS: Levothyroxine Sodium 125 MCG TAB PO SCH (05:26)
[2017-09-10 05:33] LABS: Anion Gap 13 mmol/L (10-20); BUN (Urea Nitrogen) 19 mg/dL (9.8-20.1); Calc. Creatinine Clearance 65 mL/min (70-130); Calcium 8.8 mg/dL (7.8-10.44); Carbon Dioxide 29 mmol/L (23-31); Chloride 95 mmol/L (98-107); Estimated GFR-MDRD 52; Glucose 164 mg/dL (83-110); Potassium 3.8 mmol/L (3.5-5.1); Sodium 133 mmol/L (136-145)
[2017-09-10 07:40] VITALS: BP 143/56; TEMP 98.9
--- NOTE | 2017-09-10 08:41 | PRG ---
DATE OF SERVICE: 09/10/2017 The patient was seen and examined, seems to be doing much better. PHYSICAL EXAMINATION: VITAL SIGNS: Afebrile with temperature 98.9, pulse 62, respiratory 16, O2 sat 93%, blood pressure 14 3/56. HEENT: Unremarkable. CARDIOVASCULAR: First and second heart sounds were heard. RESPIRATORY: Clear to auscultation. DIGESTIVE: Revealed a benign abdomen. EXTREMITIES: Showed some peripheral edema. NEUROLOGIC: The patient is much more alert, no lateralizing sign. LABORATORY INVESTIGATION: Showed sodium of 133, creatinine 1.04. IMPRESSION: 1. Hyponatremia, which is much improved now. 2. Acute kidney injury which is pretty much resolved back to baseline. PLAN: 1. Continue with current management. 2. We will recommend continuing high protein diet. 3. Diuresis with loop diuretic agents. 4. Further management to be dependent on the clinical course.
[2017-09-10] MEDS: Ascorbic Acid 500 mg Chewable Tablet PO SCH (08:45)
[2017-09-10] MEDS: Furosemide 40 MG TAB PO SCH ×2 (08:45→15:18)
[2017-09-10] MEDS: Multivit, Therapeutic 1 TAB PO SCH (08:45)
[2017-09-10] MEDS: Clopidogrel Bisulfate 75 MG TAB PO SCH (08:46)
[2017-09-10] MEDS: Carvedilol 6.25 MG TAB PO SCH (08:47)
[2017-09-10] MEDS: Enoxaparin Sodium 40 MG/0.4 ML SYRINGE SC SCH (08:47)
[2017-09-10] MEDS: Insulin Glargine 40 UNITS in Pre-Filled Syringe SC SCH (08:47)
[2017-09-10] MEDS: Citalopram 10 MG TAB PO SCH (08:48)
[2017-09-10] MEDS: Famotidine 20 MG TAB PO SCH (08:48)
[2017-09-10] MEDS: Lactinex Tablet PO SCH (08:48)
[2017-09-10] MEDS: Docusate 100 MG CAP PO SCH (09:57)
--- NOTE | 2017-09-10 15:13 | DIS ---
DATE OF ADMISSION: 09/06/2017 DATE OF DISCHARGE: 09/10/2017 ADMITTING DIAGNOSIS: Acute hyponatremia. DISCHARGE DIAGNOSIS: Acute hyponatremia secondary to vomiting and diarrhea. SECONDARY DIAGNOSES: 1. Moderate to severe dehydration. 2. Type 2 diabetes mellitus. 3. Hypothyroidism. 4. Acute diarrhea nor infectious. CONSULTANTS INVOLVED IN THIS CARE: Nephrology, Dr. Bui. HISTORY OF PRESENT ILLNESS AND HOSPITAL COURSE: In brief, this is a 76-year-old white female who elier es with her who is legally blind and he notices the patient has been having vomiting persiste ntly for the past few days and also having increasing swelling in the lower extremities. She is on L asix 20 mg along with potassium. Patient has 03/11 caregiver who mentioned that the patient has pain passing urine, has not been passing urine as much as before and it was decided to bring the patient t o the ER for further evaluation and at the ER, the patient was noted to have a sodium of 114 and a cr eatinine of 1.39 and elevated blood sugars, so the patient was diagnosed with severe hyponatremia and started on IV fluids with normal saline and Nephrology was also consulted. Patient had a thorough e valuation to rule out any evidence of SIADH as the patient was also on SSRIs. Patient was closely mo nitored during this admission. She was also started on loop diuretics which does help in reducing th e free rosne. The patient with the diuretic and with normal saline showed a good improvement in her sodium levels gradually. She also had diarrhea which was tested negative for C. diff infection and diarrhea also got controlled at the day of discharge. Patient was discharged back home in stable con dition. PHYSICAL EXAMINATION: On the day of discharge, VITAL SIGNS: Blood pressures are 143/56, heart rate is 62, respiratory rate 16, saturation 93%. GENERAL: The patient is moderately built, moderately nourished. She does not appear to be in acute distress. ABDOMEN: Nondistended, nontender, no guarding, no rebound tenderness. Bowel sounds normal. MUSCULOSKELETAL: No calf tenderness. No pedal edema. No joint tenderness, no joint swelling. DISCHARGE MEDICATIONS: 1. Hydrocodone. 2. Insulin degludec Tresiba 35 units subq daily. 3. Loratadine 10 mg p.o. at bedtime. 4. Naproxen 220 mg p.o. daily. 5. Clobetasol. 6. Docusate. 7. Polyethylene glycol 17 grams p.o. daily. 8. Ascorbic acid 1000 mg p.o. daily. 9. Aspirin 81 mg p.o. daily. 10. Coreg 6.25 mg p.o. b.i.d. 11. Plavix 75 mg p.o. daily. 12. Levothyroxine 100 mcg p.o. daily. 13. Melatonin, multivitamin 1 capsule p.o. daily. 14. Trazodone 1 tablet p.o. at bedtime. DISCHARGE INSTRUCTIONS: Continue activity as tolerated. Advise has been not to give too many of lax atives as long as the patient is having soft stools. Advised to rehydrate the patient with Gatorade if the patient is having vomiting. Advised to follow up with primary care physician in 1-2 weeks. I spent 35 minutes with this patient on the day of discharge.
== END 2017-09-10 15:29 | disposition home or self-care (01) | DRG 640 ==
LOC: ERS 09:10 → T4-A 12:05
PROVIDERS: ADMIT Internal Medicine; ATTEND Internal Medicine
DX: E87.1 Hypo-osmolality and hyponatremia (principal); G93.40 Encephalopathy, unspecified; N17.9 Acute kidney failure, unspecified; I69.954 Hemiplegia and hemiparesis following unspecified cerebrovascular disease affecting left non-dominant side; N39.0 Urinary tract infection, site not specified; E03.9 Hypothyroidism, unspecified; E86.0 Dehydration; Z79.4 Long term (current) use of insulin; Z79.82 Long term (current) use of aspirin; I25.10 Atherosclerotic heart disease of native coronary artery without angina pectoris; E78.5 Hyperlipidemia, unspecified; N18.3 Chronic kidney disease, stage 3 (moderate); I12.9 Hypertensive chronic kidney disease with stage 1 through stage 4 chronic kidney disease, or unspecified chronic kidney disease; E87.70 Fluid overload, unspecified; F03.90 Unspecified dementia, unspecified severity, without behavioral disturbance, psychotic disturbance, mood disturbance, and anxiety; E11.319 Type 2 diabetes mellitus with unspecified diabetic retinopathy without macular edema; K52.89 Other specified noninfective gastroenteritis and colitis; H54.8 Legal blindness, as defined in USA; Z95.1 Presence of aortocoronary bypass graft; R60.1 Generalized edema; E66.9 Obesity, unspecified; Z68.31 Body mass index [BMI] 31.0-31.9, adult; Z99.3 Dependence on wheelchair; H90.5 Unspecified sensorineural hearing loss; Z66 Do not resuscitate
CPT/HCPCS: 36415; 36416; 51702; 71045; 74177; 80048; 80053; 81003; 81015; 82550; 82553; 83880; 83930; 83935; 84133; 84300; 84443; 84484; 84550; 85025; 85610; 85730; 87086; 93005; 96361; 96374; A4353; G8978-GP-CM; G8979-GP-CL; J1650; J1940; Q0162

== ENCOUNTER 2018-01-13 10:48 | Inpatient (IN) | payer MEDICARE, BC ==
[2018-01-13] MEDS ORDERED: Lidocaine 1% PF 5 ML VIAL ONE (11:06)
[2018-01-13] MEDS ORDERED: PROPOFOL 200 MG/20 ML VIAL ONE (11:06)
[2018-01-13 11:39] LABS: #Eosinphils 0.2 thou/uL (0.0-0.7); #Lymphocytes 0.3 thou/uL (1.20-3.40); #Monocytes 0.5 thou/uL (0.11-0.59); #Neutrophils 12.9 thou/uL (1.40-6.50); %Basophils 0.2 % (0.0-1.0); %Eosinophils 1.2 % (0.0-10.0); %Lymphocytes 2.4 % (21.0-51.0); %Monocytes 3.5 % (0.0-10.0); %Neutrophils 92.8 % (42.0-75.0); Hemoglobin 16.2 g/dL (12.0-16.0); Mean Corpuscular HGB CONC 32.6 g/dL (32.0-36.0); Mean Corpuscular Hemoglobin 29.6 pg (27.0-31.0); Mean Corpuscular Volume 90.8 fL (78.0-98.0); Mean Platelet Volume 8.1 fL (7.4-10.4); Platelet Count 267 thou/uL (130-400); Red Blood Cell (RBC) Count 5.48 mill/uL (4.20-5.40); White Blood Cell (WBC) Count 13.9 thou/uL (4.8-10.8)
[2018-01-13 12:01] LABS: Bilirubin Negative (Negative); Blood, Urine Moderate (Negative); Glucose, Urine (Dipstick) Negative (Negative); Leukocyte Moderate (Negative); Nitrite Negative (Negative); Protein, Urine (Dipstick) 100 mg/dL (Neg-Trace); Urobilinogen 0.2 mg/dL (0.2-1.0)
[2018-01-13 12:05] LABS: Clarity Turbid (Clear); Specific Gravity, Urine 1.026 (1.002-1.036)
[2018-01-13 12:07] LABS: Bacteria/HPF 3+ HPF (None Seen); Hyaline Casts/LPF NONE SEEN LPF (0-3 Hyaline); Squamous Epithelial 0-3 HPF (0-3)
[2018-01-13 12:16] LABS: CKMB 1.3 ng/mL (0-6.6)
[2018-01-13 12:23] LABS: Troponin I Less than 0.010 ng/mL (< 0.028)
[2018-01-13] MEDS ORDERED: Ketorolac Tromethamine 30 MG/ML VIAL ONE (12:27)
[2018-01-13] MEDS ORDERED: Ondansetron HCl/PF 4 MG/2 ML Vial ONE ×2 (12:27→13:49)
[2018-01-13 12:28] LABS: ALT (SGPT) 16 U/L (8-55); AST (SGOT) 27 U/L (5-34); Albumin 3.7 g/dL (3.4-4.8); Alkaline Phosphatase 83 U/L (40-150); Anion Gap 17 mmol/L (10-20); BUN (Urea Nitrogen) 26 mg/dL (9.8-20.1); Bilirubin, Total 0.5 mg/dL (0.2-1.2); Calc. Creatinine Clearance 0 mL/min (70-130); Calcium 9.2 mg/dL (7.8-10.44); Carbon Dioxide 20 mmol/L (23-31); Chloride 101 mmol/L (98-107); Estimated GFR-MDRD 43; Globulin 3.6 g/dL (2.4-3.5); Glucose 269 mg/dL (83-110); Lipase 33 U/L (8-78); Potassium 5.4 mmol/L (3.5-5.1); Protein, Total 7.3 g/dL (6.0-8.3); Sodium 133 mmol/L (136-145)
--- NOTE | 2018-01-13 12:43 | RAD ---
CHEST ONE VIEW: History: Nausea, vomiting, chest pain. Comparison: 09-06-17 FINDINGS: Multiple mediastinal sternotomy wires. Heart size is enlarged. No pneumothorax. Old right sided rib fractures. IMPRESSION: Cardiomegaly without pulmonary venous congestion. POS: [facility]
[2018-01-13] MEDS ORDERED: TRIMETHOPRIM IVPB SCH ×2 (12:45→13:00)
[2018-01-13] MEDS ORDERED: SULFAMETHOXAZOLE IVPB SCH ×2 (12:45→13:00)
[2018-01-13] MEDS ORDERED: WATER IVPB SCH ×2 (12:45→13:00)
[2018-01-13] MEDS ORDERED: DEXTROSE 5% IVPB SCH ×2 (12:45→13:00)
[2018-01-13] MEDS ORDERED: ISOVUE-370 76%-LOCM 1 ML ONE (12:48)
--- NOTE | 2018-01-13 15:07 | CT ---
CT ABDOMEN AND PELVIS WITH CONTRAST: Date: 01/13/18 HISTORY: Pain, nausea, vomiting. COMPARISON: CT abdomen and pelvis dated 09/06/17. FINDINGS: There is scarring in the lung bases. Small pulmonary blebs in the lower lobes. There is reflux of contrast at the GE junction. [place] effect intrahepatic and extrahepatic biliar y system. There is a large chronic calculus superior right renal collecting system measuring just under 1.0 cm. Renal enhancement is symmetric. There is very large volume stool within the rectal vault, with abnormal wall thinning of the rectal w all concerning for stercoral colitis, similar to the comparison examination. Moderate degenerative changes lumbar spine. Moderate narrowing of both hip joints. Similar appearance to the height loss of the superior end plate of L1. The uterus is abnormally enlarged for age and may be sequelae of numerous fibroids. No retroperitonea l adenopathy. IMPRESSION: 1. No acute inflammatory process in the abdomen or pelvis. 2. Reflux of contrast within the lower esophagus. 3. Unchanged appearance of the 1.0 cm calculus superior right renal collecting system. 4. Large volume stool within the rectal vault with thinning of the rectal wall and possible some pne umonitis, similar to the comparison examination suggesting stercoral colitis. Disimpaction may be christa eficial in this patient. 5. No evidence for bowel obstruction. 6. Enlarged uterus, likely fibroid in nature. 7. Fluid along the left buttocks, decreased in size from comparison examination, likely sequelae of contusion. POS: [facility]
[2018-01-13] MEDS ORDERED: Polyethylene Glycol 3350 17 GM Packet PO PRN (15:51)
[2018-01-13] MEDS ORDERED: Dextrose 5% in Water 1,000 ML IV PRN (15:51)
[2018-01-13] MEDS ORDERED: Guaifenesin DM 100-10/5 ML UDCUP PO PRN (15:51)
[2018-01-13] MEDS ORDERED: Ondansetron HCl/PF 4 MG/2 ML Vial IVP PRN (15:51)
[2018-01-13] MEDS ORDERED: HumaLOG 300 UNITS/3 ML VIAL SC PRN ×2 (15:51)
[2018-01-13] MEDS ORDERED: Bisacodyl 10 MG SUPP PR PRN (15:51)
[2018-01-13] MEDS ORDERED: Dextrose 50% Abboject 50 ML SYRINGE SLOW IVP PRN (15:51)
[2018-01-13] MEDS ORDERED: GoLYTELY 4,000 ml Bottle PO SCH (16:00)
[2018-01-13 17:06] VITALS: BMI 31.4
[2018-01-13] MEDS: Sodium Chloride 0.9% 1,000 ML IV SCH ×2 (17:53→23:43)
[2018-01-13] MEDS: metroNIDAZOLE 500 MG in Premix Bag 1 BAG IVPB SCH ×2 (17:54→23:44)
--- NOTE | 2018-01-13 18:57 | ULT ---
BILATERAL LOWER EXTREMITY VENOUS ULTRASOUND WITH DOPPLER: Date: 01/13/18 HISTORY: Left leg edema and swelling. COMPARISON: None. FINDINGS: Incomplete examination. Patient aborted the exam due to intolerance. Neither leg is adequately assess ed. IMPRESSION: Incomplete and essentially nondiagnostic exam. POS: [facility]
[2018-01-13] MEDS: Fleet Enema 133 ML BOT PR SCH ×3 (19:25→19:59)
[2018-01-13] MEDS: Senokot S 8.6-50 MG TAB PO SCH (19:59)
[2018-01-13] MEDS: Carvedilol 6.25 MG TAB PO SCH (19:59)
--- NOTE | 2018-01-13 20:13 | HP ---
REASON FOR ADMISSION: Abdominal pain, intractable nausea, vomiting, stool impaction, urinary tract i nfection, moderate dehydration. HISTORY OF PRESENT ILLNESS: The patient gives history of started to have a nauseated feeling around 2 in the morning. She threw up at 2:30 a.m. and has been consistently throwing up on the hour. The last one was at 9:00 a.m. but she is still feeling nauseous. The last few vomiting says been bilious . The patient has had crampy abdominal pain. Last bowel movement per caregiver who was with her was yesterday which was soft stool, but no diarrhea as such. Her is also having nausea or vomit ing at bedside at present. No complaints of chest pain, palpitation, PND or orthopnea. PAST MEDICAL AND SURGICAL HISTORY: The patient lives in [facility] and is essentially wheelchair a nd bed bound from October of this year. Hypertension, dyslipidemia, hypothyroidism, history of prior CV A with left hemiparesis, diabetes mellitus type 2, CHF with diastolic dysfunction, obesity, macular d egeneration with blindness, sensorineural hearing loss, dementia, coronary artery disease, retinal de tachment with repair in left eye, cataract surgery, CABG, cholecystectomy. CURRENT MEDICATIONS: The patient is on aspirin 81 mg p.o. daily, Colace 100 mg p.o. q.a.m., Plavix 7 5 mg p.o. daily, Coreg 6.25 mg twice daily, levothyroxine 100 mcg daily, cranberry 4200 mg p.o. daily , Centrum 1 tab daily, vitamin C 1000 mg daily, vitamin D2 daily, Tresiba 35 units q.a.m., Claritin 1 0 mg daily, probiotic 1 tab daily, trazodone 25 mg daily, Protonix 40 mg daily, melatonin 5 mg p.o. a t bedtime, Phenergan p.r.n. ALLERGIES: KEFLEX, MORPHINE. PERSONAL HISTORY: Does not abuse alcohol or drugs. No history of smoking. She lives with her [facility] at [facility]. FAMILY HISTORY: Father has had history of heart disease and COPD. Mother had degenerative arthritis . CODE STATUS: DNR. I discussed with her who is here at bedside. REVIEW OF SYSTEMS: The following complete review of systems was negative, unless otherwise mentioned in the HPI or below: Constitutional: Weight loss or gain, ability to conduct usual activities. Sk in: Rash, itching. Eyes: Double vision, pain. ENT/Mouth: Nose bleeding, neck stiffness, pain, te nderness. Cardiovascular: Palpitations, dyspnea on exertion, orthopnea. Respiratory: Shortness of breath, wheezing, cough, hemoptysis, fever or night sweats. Gastrointestinal: Poor appetite, abdom inal pain, heartburn, nausea, vomiting, constipation, or diarrhea. Genitourinary: Urgency, frequenc y, dysuria, nocturia. Musculoskeletal: Pain, swelling. Neurologic/Psychiatric: Anxiety, depressio n. Allergy/Immunologic: Skin rash, bleeding tendency. PHYSICAL EXAMINATION: GENERAL: The patient is a 77-year-old female who is currently in mild distress from nauseating feeli ng and abdominal cramping. VITAL SIGNS: Blood pressure 146/90, pulse 72 per minute, respiratory rate 18 per minute, temperature 98.3 degrees Fahrenheit, saturating 93% on room air. NECK: Supple, no elevated JVD. HEENT: Extraocular muscles intact. Pupils reacting to light. Oral cavity mucous membranes are dry. No exudates or congestion. CARDIOVASCULAR: S1, S2 heard. Regular rhythm. RESPIRATORY: Air entry 1+ bilateral. No rales or rhonchi. ABDOMEN: Soft, bowel sounds heard. There is mild tenderness in the left lower quadrant, no rigidity or guarding. EXTREMITIES: Left lower extremity is tender to touch and is edematous when compared to right lower e xtremity. VASCULAR: Peripheral pulses are 1+ bilateral, no ischemic ulcerations or gangrene. CENTRAL NERVOUS SYSTEM: No gross focal deficits noted. Patient is alert, awake, but is not fully or iented. PSYCHIATRIC: The patient's mood is euthymic. No hallucinations or delusions. LABORATORY AND X-RAY FINDINGS: UA done shows moderate ketones, moderate leukocyte esterase, greater than 50 WBCs, 3+ bacteria. Potassium 5.4, sodium 133, serum bicarbonate 20, BUN 26, creatinine 1.21. Serum glucose 269, albumin is 3.7. First set of cardiac enzymes are negative. Lipase is 33. Live r enzymes within normal limits. White count of 13, H and H 16 and 49, platelet count 267 with 92% ne utrophils. CT of the abdomen and pelvis done shows there is a right renal collecting system calculus which is 1 cm which is unchanged when compared to prior CAT scan, large volume of stool within the r ectal wall with pinning of rectal wall and possible stercoral colitis. No evidence of bowel obstruct ion. Chest x-ray done shows cardiomegaly, but no acute infiltrate. EKG done shows sinus rhythm at 7 2 beats per minute. There are signs of LVH seen. CLINICAL IMPRESSION AND PLAN: The patient will be admitted to medical floor for moderate dehydration , intractable nausea, vomiting, urinary tract infection, stool impaction. She will be gently hydrate d with normal saline at 50 mL per hour. We will also give her 2 liters of GoLYTELY. We will empiric ally cover with Levaquin and Flagyl in view of thinning of the rectal wall. Dr. Quiroz is attempted a digital disimpaction in the ER, but the stool consistency is very loose, hence could not reach the hard part of the stool. She will be given Fleets enema q.3 hourly x3. We will keep her on liquid d iet for now. We will continue her on aspirin, Coreg, Plavix, Tresiba, levothyroxine, melatonin, mult ivitamin as before. She will be put on intense bowel regimen once the stool impaction is clear. Uri ne cultures have been obtained in the ER and will follow up on the cultures. Code status was discuss ed with patient and she is a DNR. This was confirmed with the patient's at bedside. We will obtain ultrasound venous Doppler of lower extremities to rule out DVT, especially the left one.
[2018-01-13] MEDS ORDERED: Fleet Enema 133 ML BOT ONE (22:15)
[2018-01-13] MEDS ORDERED: Mineral Oil ENEMA ONE (22:15)
--- NOTE | 2018-01-14 00:27 | CON ---
DATE OF CONSULTATION: 01/13/2018 REASON FOR CONSULTATION: Nausea, vomiting, and fecal impaction. HISTORY OF PRESENT ILLNESS: Ms. Hernandez is a 77-year-old female who lives in an assisted facility an d was brought in by her caregiver after developed nausea, vomiting overnight. She has had multiple e pisodes of vomiting throughout the night which prompted ER evaluation. The patient is blind and hard of hearing. History was rather difficult to be obtained. However, she denies having any abdominal pain. According to the two caregivers, she has had much decreased stool output in the last 2 weeks, only having smear of liquid stool. There is no visible bleeding such as melena, hematochezia, or rec manish bleeding. Her abdomen has become more distended over the last [address] obtained in the ER de monstrated large fecal impaction. There are no other significant findings. PAST MEDICAL HISTORY: 1. Prior CVA two years ago. 2. Adult onset diabetes. 3. Hypertension. 4. Obesity. 5. Macular degeneration with blindness. 6. Hearing loss. 7. Hyperlipidemia. 8. Coronary artery disease, status post bypass surgery. 9. Status post cholecystectomy. ALLERGIES: KEFLEX, MORPHINE, TYLENOL, and CODEINE. FAMILY HISTORY: Negative for any known GI problem, liver disease, or GI malignancy. MEDICATIONS: At home include aspirin, Coreg, Plavix, Lovenox, Humalog insulin, senna, and trazodone. SOCIAL HISTORY: The patient and her lives in assisted living care. There is no known tobacc o or alcohol usage. REVIEW OF SYSTEMS: Not obtainable. PHYSICAL EXAMINATION: VITAL SIGNS: Temperature is 97.3, blood pressure 158/79, pulse of 69. GENERAL: She is alert, does not appear in any severe distress. HEENT: Shows anicteric sclerae. Oropharynx clear. NECK: Supple. CARDIOVASCULAR: Shows normal S1, S2 regular rate and rhythm. CHEST: Shows breath sounds. ABDOMEN: Somewhat distended, but no significant tympany. She has active bowel sounds. There is no tenderness. There is no guarding. Organomegaly are difficult to assess secondary to size. EXTREMITIES: Shows no edema. LABORATORY DATA: WBC is 13.9, hemoglobin 16.2, platelet count of 267. Sodium 133, potassium 5.4, ch loride 101, CO2 of 20, creatinine 1.21, BUN of 26. LFTs are normal, lipase of 33. CT reviewed does show very large fecal impaction with some proximal dilation of the colon. ASSESSMENT: 1. Large fecal impaction in the rectum. 2. Nausea, vomiting, no evidence of small-bowel obstruction. Likely related to her fecal impaction. 3. Diastolic dysfunction/diabetes/hypertension. 4. Macular degeneration with blindness. 5. Hearing loss. RECOMMENDATIONS: 1. The patient will require manual disimpaction given CT finding. I have discussed this with Ms. Prasad tran and her . We will proceed. This will need to be done under sedation. 2. We will clean out the rest of the colon with GoLYTELY after manual disimpaction.
[2018-01-14] MEDS: traZODone HCl 50 MG TAB PO PRN ×2 (00:36→21:52)
[2018-01-14] MEDS: Melatonin 3 MG TAB PO PRN ×2 (00:36→21:52)
--- NOTE | 2018-01-14 01:24 | OP ---
DATE OF PROCEDURE: 01/13/2018 PROCEDURE: Manual fecal disimpaction under anesthesia. PREOPERATIVE DIAGNOSIS: Severe fecal impaction. POSTOPERATIVE DIAGNOSIS: Severe fecal impaction. PROCEDURE IN DETAIL: A written consent was obtained prior to procedure. After good sedation encount ered, patient was positioned in the left lateral position. Using multiple Fleet enemas, disimpaction was performed. Large amount of stool were extracted. A final stool consists of very much soft stoo l was evacuated. Patient tolerated procedure well without any immediate complication. ASSESSMENT: Status post manual fecal disimpaction. PLAN: We will start Colyte in a.m.
[2018-01-14 04:47] LABS: #Eosinphils 0.1 thou/uL (0.0-0.7); #Lymphocytes 0.5 thou/uL (1.20-3.40); #Monocytes 0.7 thou/uL (0.11-0.59); #Neutrophils 9.2 thou/uL (1.40-6.50); %Eosinophils 0.7 % (0.0-10.0); %Lymphocytes 4.9 % (21.0-51.0); %Monocytes 6.3 % (0.0-10.0); %Neutrophils 88.1 % (42.0-75.0); Hemoglobin 14.1 g/dL (12.0-16.0); Mean Corpuscular HGB CONC 32.4 g/dL (32.0-36.0); Mean Corpuscular Hemoglobin 29.4 pg (27.0-31.0); Mean Corpuscular Volume 90.8 fL (78.0-98.0); Mean Platelet Volume 8.4 fL (7.4-10.4); Platelet Count 252 thou/uL (130-400); RBC Distribution Width 12.9 % (11.5-14.5); Red Blood Cell (RBC) Count 4.79 mill/uL (4.20-5.40); White Blood Cell (WBC) Count 10.4 thou/uL (4.8-10.8)
[2018-01-14 04:56] LABS: ALT (SGPT) 13 U/L (8-55); AST (SGOT) 11 U/L (5-34); Albumin 3.3 g/dL (3.4-4.8); Alkaline Phosphatase 61 U/L (40-150); Anion Gap 12 mmol/L (10-20); BUN (Urea Nitrogen) 28 mg/dL (9.8-20.1); Bilirubin, Total 0.3 mg/dL (0.2-1.2); Calc. Creatinine Clearance 58 mL/min (70-130); Calcium 8.4 mg/dL (7.8-10.44); Carbon Dioxide 23 mmol/L (23-31); Chloride 103 mmol/L (98-107); Estimated GFR-MDRD 45; Globulin 2.8 g/dL (2.4-3.5); Glucose 78 mg/dL (83-110); Potassium 3.6 mmol/L (3.5-5.1); Protein, Total 6.1 g/dL (6.0-8.3); Sodium 134 mmol/L (136-145)
[2018-01-14] MEDS: Levothyroxine Sodium 100 MCG TAB PO SCH (05:16)
[2018-01-14] MEDS ORDERED: GoLYTELY 4,000 ml Bottle PO SCH (08:00)
[2018-01-14] MEDS ORDERED: INSULIN DEGLUDEC 35 UNIT SQ SCH (09:00)
[2018-01-14] MEDS ORDERED: Insulin Glargine 35 UNITS in Pre-Filled Syringe 1 EACH SC SCH (09:00)
[2018-01-14] MEDS: Senokot S 8.6-50 MG TAB PO SCH ×2 (09:35→21:47)
[2018-01-14] MEDS: Clopidogrel Bisulfate 75 MG TAB PO SCH (09:35)
[2018-01-14] MEDS: Multivit, Therapeutic 1 TAB PO SCH (09:36)
[2018-01-14] MEDS: Carvedilol 6.25 MG TAB PO SCH ×2 (09:37→21:48)
[2018-01-14] MEDS: metroNIDAZOLE 500 MG in Premix Bag 1 BAG IVPB SCH ×2 (09:39→19:30)
[2018-01-14] MEDS: Enoxaparin Sodium 40 MG/0.4 ML SYRINGE SC SCH (09:39)
--- NOTE | 2018-01-14 10:19 | PRG ---
DATE OF SERVICE: 01/14/2018 SUBJECTIVE: Ms. Hernandez complains that she is tired. She denies any abdominal pain or nausea. Ther e has been no vomiting. Her supervisor soakers confirms that she has started on GoLYTELY prep. She has had a bout 500 mL only so far. OBJECTIVE: VITAL SIGNS: Temperature 98.2, pulse 72, blood pressure 135/78, 95% oxygen saturation on room air. GENERAL: No acute distress. HEART: Regular rate and rhythm. LUNGS: Clear to auscultation bilaterally. ABDOMEN: Moderate distention, soft, nontender to deep palpation throughout. She has very active bow el sounds in all 4 quadrants. EXTREMITIES: No peripheral edema. LABORATORY STUDIES: WBC 10.4, hemoglobin 14.1, platelets 252. Sodium 134, potassium 3.6, BUN 28, cr eatinine 1.16, glucose 80. LFTs all normal. ASSESSMENT AND PLAN: Severe rectal fecal impaction, status post manual disimpaction under sedation p erformed by Dr. Johnson last night. I appreciate Dr. Johnson's assistance. She had very good results with manual disimpaction last night with a large amount of stool able to be evacuated. I agree with the plan to finish out a gallon of GoLYTELY over the course of the day. I tried to be encouraging in thi s. I expect that she will have a significant stool output with this. Following the GoLYTELY, I thin k her diet can be advanced. In the longer term, need to try to avoid further episodes of impaction. Mobilize as much as possible . I have her on a good bowel regimen. I would recommend Colace 100 mg twice daily, and MiraLax 17 g heide at least once daily, but could be titrated up to 3 or 4 times a day as needed for a goal of verónica y bowel movement. GI will sign off at this time, but please call back anytime with questions or concerns.
[2018-01-14] MEDS: Dextrose 5% in Water 1,000 ML IV SCH (12:02)
--- NOTE | 2018-01-14 14:01 | PDOC.PN ---
- Subjective Encounter Start Date: 01/14/18 Encounter Start Time: 11:00 Subjective: awakens easily, usually has her eyes closed -: follows verbal stimuli, not oriented -: no abd pain or nausea now - Objective Resuscitation Status: Resuscitation Status DNR:Do Not Resuscitate MAR Reviewed: Yes Vital Signs & Weight: Vital Signs (12 hours) Temp Pulse Resp BP BP Pulse Ox 01/14/18 12:00 97.7 F 78 16 138/72 93 L 01/14/18 09:37 135/78 01/14/18 07:53 98.2 F 72 18 150/66 H 95 Weight Weight 187 lb 12.8 oz I&O: 01/13/18 01/14/18 01/15/18 06:59 06:59 06:59 Intake Total 500 Output Total 6 Balance 494 Result Diagrams: 01/14/18 03:51 01/14/18 03:51 Additional Labs: Accuchecks 01/14/18 01/14/18 01/13/18 11:17 04:37 23:57 POC Glucose 69 L 80 100 01/13/18 19:47 POC Glucose 179 H Phys Exam - Physical Examination HEENT: PERRLA, moist MMs Neck: no JVD, supple Respiratory: no wheezing, no rales Cardiovascular: RRR, no significant murmur Gastrointestinal: soft, non-tender, no distention, positive bowel sounds Musculoskeletal: pulses present, edema present Neurological: non-focal, moves all 4 limbs Dx/Plan (1) Fecal impaction of colon Code(s): K56.41 - FECAL IMPACTION Status: Acute Comment: resolving (2) Dehydration, moderate Code(s): E86.0 - DEHYDRATION Status: Acute Comment: resolving (3) UTI (urinary tract infection) Status: Acute Qualifiers: Urinary tract infection type: acute cystitis Hematuria presence: without hematuria Qualified Code(s): N30.00 - Acute cystitis without hematuria (4) Intractable nausea and vomiting Code(s): R11.2 - NAUSEA WITH VOMITING, UNSPECIFIED Status: Resolved (5) CAD (coronary artery disease) Code(s): I25.10 - ATHSCL HEART DISEASE OF [place] CORONARY ARTERY W/O ANG PCTRS Status: Chronic Qualifiers: Coronary Disease-Associated Artery/Lesion type: bypass graft [place] vs. transplanted heart: [place] heart Associated angina: without angina Qualified Code(s): I25.810 - Atherosclerosis of coronary artery bypass graft(s) without angina pectoris (6) CVA (cerebral vascular accident) Code(s): I63.9 - CEREBRAL INFARCTION, UNSPECIFIED Status: Chronic Qualifiers: CVA mechanism: unspecified Comment: mild left hemiparesis (7) DM type 2 (diabetes mellitus, type 2) Status: Chronic Qualifiers: Diabetes mellitus [employer] insulin use: with [employer] use Diabetes mellitus complication status: with unspecified complications Qualified Code(s) : E11.8 - Type 2 diabetes mellitus with unspecified complications; Z79.4 - nursing home (current) use of insulin Comment: continue on SSI, as needed. (8) Dyslipidemia Code(s): E78.5 - HYPERLIPIDEMIA, UNSPECIFIED Status: Chronic (9) HTN (hypertension) Code(s): I10 - ESSENTIAL (PRIMARY) HYPERTENSION Status: Chronic Qualifiers: Hypertension type: essential hypertension (10) Hypothyroidism Code(s): E03.9 - HYPOTHYROIDISM, UNSPECIFIED Status: Chronic Qualifiers: Hypothyroidism type: unspecified Qualified Code(s): E03.9 - Hypothyroidism , unspecified - Plan is on levaquin and flagyl, will dc in am if stable -: had digital evaucation of rectal contents yesterday under anesthesia -: to drink golytely 1 liter for residual stool to come out -: liq diet, may advance to solid diet for dinner -: dc plan in am if stable * . Review of Systems - Medications/Allergies Allergies/Adverse Reactions: Allergies Allergy/AdvReac Type Severity Reaction Status Date / Time acetaminophen Allergy Verified 09/06/17 15:24 [From Tylenol-Codeine #3] benzonatate Allergy Verified 07/25/15 23:26 [From Tessalon Perles] cephalexin monohydrate Allergy Verified 07/23/15 12:16 [From Keflex] codeine Allergy Verified 07/23/15 12:16 gabapentin Allergy Verified 12/05/16 19:21 metformin Allergy pt doesn't Verified 09/06/17 15:24 like it morphine Allergy Verified 07/23/15 12:16 Medications: Current Medications Aspirin (Aspirin Chewable) 81 mg PO DAILY MARCO A Last Admin: 01/14/18 09:36 Dose: 81 mg Bisacodyl (Dulcolax) [address] DAILYPRN PRN PRN Reason: Constipation Carvedilol (Coreg) 6.25 mg PO BID [facility] Last Admin: 01/14/18 09:37 Dose: 6.25 mg Clopidogrel Bisulfate (Plavix) 75 mg PO QAM [facility] Last Admin: 01/14/18 09:35 Dose: 75 mg Dextrose/Water (Dextrose 50%) 25 gm SLOW IVP PRN PRN PRN Reason: Hypoglycemia Enoxaparin Sodium (Lovenox) 40 mg SC 0900 [facility] Last Admin: 01/14/18 09:39 Dose: 40 mg Glucagon (Glucagon) 1 mg IM PRN PRN PRN Reason: Hypoglycemia Guaifenesin/Dextromethorphan (Robitussin Dm) 15 ml PO Q4H PRN PRN Reason: Cough Dextrose/Water (D5w) 1,000 mls @ 0 mls/hr IV .Q0M PRN PRN Reason: Hypoglycemia Levofloxacin 500 mg/ Device 100 mls @ 100 mls/hr IVPB 1600 MARCO A Metronidazole 500 mg/ Device 100 mls @ 100 mls/hr IVPB 0100,0900,1700 [facility] Last Admin: 01/14/18 09:39 Dose: 100 mls Dextrose/Water (D5w) 1,000 mls @ 70 mls/hr IV .[id number] [facility] Last Admin: 01/14/18 12:02 Dose: 1,000 mls Levothyroxine Sodium (Synthroid) 100 mcg PO 0600 [facility] Last Admin: 01/14/18 05:16 Dose: 100 mcg Melatonin (Melatonin) 3 mg PO HS PRN PRN Reason: insomnia Last Admin: 01/14/18 00:36 Dose: 3 mg Multivitamins (Theragran) 1 tab PO DAILY [facility] Last Admin: 01/14/18 09:36 Dose: 1 tab Ondansetron HCl (Zofran) 4 mg IVP Q6H PRN PRN Reason: Nausea/Vomiting Polyethylene Glycol (Miralax) 17 gm PO DAILY PRN PRN Reason: Constipation Polyethylene Glycol/Electrolytes (Golytely) 4,000 ml PO 0800 [facility] Stop: 01/14/18 15:00 Last Admin: 01/14/18 09:33 Dose: 4,000 ml Senna/Docusate Sodium (Senokot S) 2 tab PO BID [facility] Last Admin: 01/14/18 09:35 Dose: 2 tab Trazodone HCl (Desyrel) 50 mg PO HS PRN PRN Reason: Insomnia Last Admin: 01/14/18 00:36 Dose: 50 mg
[2018-01-15] MEDS: metroNIDAZOLE 500 MG in Premix Bag 1 BAG IVPB SCH ×2 (01:31→08:54)
[2018-01-15] MEDS: Dextrose 5% in Water 1,000 ML IV SCH (04:29)
[2018-01-15 05:11] LABS: #Eosinphils 0.1 thou/uL (0.0-0.7); #Lymphocytes 0.9 thou/uL (1.20-3.40); #Monocytes 0.6 thou/uL (0.11-0.59); #Neutrophils 5.2 thou/uL (1.40-6.50); %Eosinophils 0.9 % (0.0-10.0); %Lymphocytes 13.1 % (21.0-51.0); %Monocytes 8.6 % (0.0-10.0); %Neutrophils 77.3 % (42.0-75.0); Hemoglobin 13.5 g/dL (12.0-16.0); Mean Corpuscular HGB CONC 33.1 g/dL (32.0-36.0); Mean Corpuscular Hemoglobin 30.2 pg (27.0-31.0); Mean Corpuscular Volume 91.2 fL (78.0-98.0); Mean Platelet Volume 8.7 fL (7.4-10.4); Platelet Count 231 thou/uL (130-400); RBC Distribution Width 13.1 % (11.5-14.5); Red Blood Cell (RBC) Count 4.48 mill/uL (4.20-5.40); White Blood Cell (WBC) Count 6.8 thou/uL (4.8-10.8)
[2018-01-15 05:18] LABS: Anion Gap 12 mmol/L (10-20); BUN (Urea Nitrogen) 20 mg/dL (9.8-20.1); Calc. Creatinine Clearance 63 mL/min (70-130); Calcium 8.3 mg/dL (7.8-10.44); Carbon Dioxide 22 mmol/L (23-31); Chloride 105 mmol/L (98-107); Estimated GFR-MDRD 54; Glucose 100 mg/dL (83-110); Potassium 3.2 mmol/L (3.5-5.1); Sodium 136 mmol/L (136-145)
[2018-01-15] MEDS: Levothyroxine Sodium 100 MCG TAB PO SCH (05:41)
[2018-01-15] MEDS: Senokot S 8.6-50 MG TAB PO SCH (08:52)
[2018-01-15] MEDS: Clopidogrel Bisulfate 75 MG TAB PO SCH (08:52)
[2018-01-15] MEDS: Carvedilol 6.25 MG TAB PO SCH (08:53)
[2018-01-15] MEDS: Enoxaparin Sodium 40 MG/0.4 ML SYRINGE SC SCH (08:54)
[2018-01-15] MEDS: Multivit, Therapeutic 1 TAB PO SCH (08:54)
--- NOTE | 2018-01-15 13:04 | PDOC.PN ---
- Subjective Encounter Start Date: 01/15/18 Encounter Start Time: 08:00 Subjective: no abd pain or sob -: drank around 1/2 a liter of golytely so far from yesterday -: has been having liq stools per caregiver at bedside - Objective Resuscitation Status: Resuscitation Status DNR:Do Not Resuscitate MAR Reviewed: Yes Vital Signs & Weight: Vital Signs (12 hours) Temp Pulse Resp BP BP Pulse Ox 01/15/18 08:53 142/80 H 01/15/18 08:00 94 L 01/15/18 07:19 98.8 F 75 20 142/80 H 94 L Weight Weight 187 lb 12.8 oz I&O: 01/14/18 01/15/18 01/16/18 06:59 06:59 06:59 Intake Total 500 2780 Output Total 6 Balance 494 2780 Result Diagrams: 01/15/18 04:03 01/15/18 04:03 Additional Labs: Accuchecks 01/15/18 01/14/18 01/14/18 05:03 20:46 16:29 POC Glucose 112 H 104 89 Phys Exam - Physical Examination HEENT: PERRLA, moist MMs Neck: no JVD, supple Respiratory: no wheezing, no rales Cardiovascular: RRR, no significant murmur Gastrointestinal: soft, non-tender, positive bowel sounds Musculoskeletal: pulses present, edema present Neurological: non-focal, moves all 4 limbs Dx/Plan (1) Fecal impaction of colon Code(s): K56.41 - FECAL IMPACTION Status: Acute Comment: resolving (2) Dehydration, moderate Code(s): E86.0 - DEHYDRATION Status: Resolved (3) UTI (urinary tract infection) Status: Acute Qualifiers: Urinary tract infection type: acute cystitis Hematuria presence: without hematuria Qualified Code(s): N30.00 - Acute cystitis without hematuria (4) Intractable nausea and vomiting Code(s): R11.2 - NAUSEA WITH VOMITING, UNSPECIFIED Status: Resolved (5) CAD (coronary artery disease) Code(s): I25.10 - ATHSCL HEART DISEASE OF [place] CORONARY ARTERY W/O ANG PCTRS Status: Chronic Qualifiers: Coronary Disease-Associated Artery/Lesion type: bypass graft [place] vs. transplanted heart: [place] heart Associated angina: without angina Qualified Code(s): I25.810 - Atherosclerosis of coronary artery bypass graft(s) without angina pectoris (6) CVA (cerebral vascular accident) Code(s): I63.9 - CEREBRAL INFARCTION, UNSPECIFIED Status: Chronic Qualifiers: CVA mechanism: unspecified Comment: mild left hemiparesis (7) DM type 2 (diabetes mellitus, type 2) Status: Chronic Qualifiers: Diabetes mellitus [facility]cf insulin use: with tank terminal gauger use Diabetes mellitus complication status: with unspecified complications Qualified Code(s) : E11.8 - Type 2 diabetes mellitus with unspecified complications; Z79.4 - custodial (current) use of insulin Comment: continue on SSI, as needed. (8) Dyslipidemia Code(s): E78.5 - HYPERLIPIDEMIA, UNSPECIFIED Status: Chronic (9) HTN (hypertension) Code(s): I10 - ESSENTIAL (PRIMARY) HYPERTENSION Status: Chronic Qualifiers: Hypertension type: essential hypertension (10) Hypothyroidism Code(s): E03.9 - HYPOTHYROIDISM, UNSPECIFIED Status: Chronic Qualifiers: Hypothyroidism type: unspecified Qualified Code(s): E03.9 - Hypothyroidism , unspecified - Plan hemostable -: dc pt back to [facility] -: to continue miralax and colace * .
[2018-01-15 15:10] VITALS: BP 170/80; TEMP 98.2
--- NOTE | 2018-01-16 17:29 | EKG ---
Test Reason : Blood Pressure : / mmHG Vent. Rate : 072 BPM Atrial Rate : 072 BPM P-R Int : 234 ms QRS Dur : 090 ms QT Int : 382 ms P-R-T Axes : 022 026 161 degrees QTc Int : 418 ms Sinus rhythm with 1st degree A-V block Left ventricular hypertrophy with repolarization abnormality Abnormal ECG Confirmed by LANE HAYNES, HERLINDA Ding ([id number]), international editorial producer JEY ANDRE ([id number]) on 01/16/2018 5:28:32 PM Referred By: Confirmed By:HERLINDA SHERMAN MD
--- NOTE | 2018-01-16 23:02 | DIS ---
DATE OF ADMISSION: 01/13/2018 DATE OF DISCHARGE: 01/15/2018 DISCHARGE DISPOSITION: To assisted living facility at [facility] with home health traditions. PRIMARY DISCHARGE DIAGNOSES: Stool impaction, resolved moderate dehydration and urinary tract infect ion with intractable nausea and vomiting, resolved. SECONDARY DISCHARGE DIAGNOSES: Poor functional status, coronary artery disease, history of cerebrova scular accident with prior left hemiparesis, diabetes mellitus type 2, dyslipidemia, hypertension, hy pothyroidism. PROCEDURES DONE DURING HOSPITALIZATION: Ultrasound venous Doppler could not be completed as patient was noncooperative. Chest x-ray done showed mild cardiomegaly with no acute infiltrate. CT of the a bdomen and pelvis with contrast done showed no acute inflammatory process. There is a large volume o f stool in the rectal vault with thinning of the rectal wall and possibly some pneumonitis similar to the comparison examination suggesting stercoral colitis. The patient has had manual disimpaction do ne in the operating room on 01/13/[address] Johnson. Blood cultures showed no growth. Had a white co unt of 13 with discharge white count of 6. DISCHARGE MEDICATIONS: Colace 100 mg twice daily, MiraLax 17 grams daily, Levaquin 500 mg p.o. daily for another 4 days, trazodone 25 mg p.o. at bedtime, Plavix 75 mg p.o. daily, Protonix 40 mg daily, multivitamin 1 capsule daily, melatonin 3 mg p.o. at bedtime p.r.n., Claritin p.r.n., levothyroxine 1 00 mcg p.o. daily, Tresiba 35 units subcu daily, vitamin D3 of 2000 units p.o. daily, Coreg 12.5 mg p .o. daily, aspirin 81 mg p.o. daily, vitamin C 1000 mg p.o. daily. ALLERGIES: Allergic to ACETAMINOPHEN with CODEINE, KEFLEX, TESSALON PERLES, GABAPENTIN, METFORMIN, a nd MORPHINE. DISCHARGE PLAN: The patient to follow up with Dr. Johnson in 4-6 weeks and primary care physician in 1 week. BRIEF COURSE DURING HOSPITALIZATION: The patient initially was brought to emergency room as she was having severe nausea, vomiting, and abdominal pain. Initial CAT scan and lab workup done revealed fe ella impaction with urinary tract infection and moderate dehydration. The patient was admitted to [facility] floor. She has had gentle hydration done. The patient has had manual disimpaction done in the operating room by Dr. Johnson after multiple attempts at the bedside. She was asked to drink 4 liters o f GoLYTELY, but patient was successful and drinking only half a liter of it. She has had multiple lo ose stools and clearing up of her disimpaction. Her nausea, vomiting, and abdominal pain have comple tely resolved. She is tolerating oral solid diet and will be shortly discharged home. Please see a [id number] documentation on [facility] for the day of discharge.
== END 2018-01-15 15:29 | disposition home or self-care (01) | DRG 389 ==
LOC: ERS 10:48 → T4-B 16:50
PROVIDERS: ADMIT Internal Medicine; ATTEND Internal Medicine
PROC: 3E1H78Z Irrigation of Lower GI using Irrigating Substance, Via Natural or Artificial Opening (ICD-10-PCS; principal; 2018-01-13)
DX: K56.41 Fecal impaction (principal); I69.354 Hemiplegia and hemiparesis following cerebral infarction affecting left non-dominant side; I50.32 Chronic diastolic (congestive) heart failure; N30.00 Acute cystitis without hematuria; E86.0 Dehydration; Z99.3 Dependence on wheelchair; E78.5 Hyperlipidemia, unspecified; E03.9 Hypothyroidism, unspecified; I11.0 Hypertensive heart disease with heart failure; E11.319 Type 2 diabetes mellitus with unspecified diabetic retinopathy without macular edema; Z79.4 Long term (current) use of insulin; H35.30 Unspecified macular degeneration; H54.7 Unspecified visual loss; H90.5 Unspecified sensorineural hearing loss; F03.90 Unspecified dementia, unspecified severity, without behavioral disturbance, psychotic disturbance, mood disturbance, and anxiety; I25.10 Atherosclerotic heart disease of native coronary artery without angina pectoris; Z95.1 Presence of aortocoronary bypass graft; Z79.82 Long term (current) use of aspirin; Z88.8 Allergy status to other drugs, medicaments and biological substances; Z66 Do not resuscitate; E66.9 Obesity, unspecified; Z68.29 Body mass index [BMI] 29.0-29.9, adult
CPT/HCPCS: 36415; 36416; 51701; 71045; 74177; 80048; 80053; 81003; 81015; 82553; 83605; 83690; 84484; 85025; 87040; 93005; 93970; 96361; 96365; 96375; 96376; A4353; G8978-GP-CN; G8979-GP-CM; G8987-GO-CM; G8988-GO-CM; G8989-GO-CM; J1650; J1885; J1956; J2001; J2405; J2704; J3490; J7070

== ENCOUNTER 2018-04-24 03:48 | Inpatient (IN) | payer MEDICARE, BC ==
[2018-04-24 04:20] LABS: Bilirubin Negative (Negative); Blood, Urine Large (Negative); Clarity CLEAR (Clear); Glucose, Urine (Dipstick) Negative (Negative); Leukocyte Small (Negative); Nitrite Negative (Negative); Protein, Urine (Dipstick) 100 mg/dL (Neg-Trace); Specific Gravity, Urine 1.017 (1.002-1.036); pH, Urine 6.5 (5.0-9.0)
[2018-04-24 04:23] LABS: Bacteria/HPF None Seen HPF (None Seen); Hyaline Casts/LPF 4-6 HYALINE CAST LPF (0-3 Hyaline); RBC/HPF GREATER THAN 50-TNTC HPF (0-3); WBC/HPF 0-3 HPF (0-3)
[2018-04-24 04:43] LABS: Renal Epithelial None Seen HPF (0-3); Transitional Epithelial NONE SEEN HPF (0-3)
[2018-04-24 04:49] LABS: Hemoglobin 13.7 g/dL (12.0-16.0); Mean Corpuscular HGB CONC 34.4 g/dL (32.0-36.0); Mean Corpuscular Hemoglobin 30.2 pg (27.0-31.0); Mean Corpuscular Volume 87.8 fL (78.0-98.0); Mean Platelet Volume 8.4 fL (7.4-10.4); Platelet Count 266 thou/uL (130-400); Red Blood Cell (RBC) Count 4.52 mill/uL (4.20-5.40); White Blood Cell (WBC) Count 8.7 thou/uL (4.8-10.8)
[2018-04-24 04:51] LABS: ALT (SGPT) 17 U/L (8-55); AST (SGOT) 20 U/L (5-34); Albumin 3.8 g/dL (3.4-4.8); Alkaline Phosphatase 84 U/L (40-150); Anion Gap 16 mmol/L (10-20); BUN (Urea Nitrogen) 12 mg/dL (9.8-20.1); Bilirubin, Total 0.4 mg/dL (0.2-1.2); CK (CPK) 141 U/L (29-168); Calc. Creatinine Clearance 0 mL/min (70-130); Calcium 9.1 mg/dL (7.8-10.44); Carbon Dioxide 26 mmol/L (23-31); Chloride 89 mmol/L (98-107); Estimated GFR-MDRD 62; Glucose 151 mg/dL (83-110); Lipase 26 U/L (8-78); Potassium 4.9 mmol/L (3.5-5.1); Protein, Total 6.8 g/dL (6.0-8.3); Sodium 126 mmol/L (136-145)
[2018-04-24 04:54] LABS: Band 1 % (5-11); Eosinophils 1 % (0-10); Lymphocytes 6 % (21-51); MDiff Complete? YES; Monocytes 2 % (0-10); Neutrophil 89 % (42-75); Platelet Morphology Comment Appears Adequate; RBC Morphology Normal; Reactive Lymphocytes 1 % (0-10)
[2018-04-24] MEDS ORDERED: Furosemide 40 MG/4 ML VIAL ONE ×2 (06:03→14:06)
[2018-04-24] MEDS ORDERED: Fentanyl 100 MCG/2 ML VIAL ONE (06:31)
--- NOTE | 2018-04-24 07:45 | ULT ---
LEFT LOWER EXTREMITY VENOUS DOPPLER ULTRASOUND: DATE: 04/24/2018. COMPARISON: None. HISTORY: Pain, swelling, and redness. TECHNIQUE: Multiplanar, winters scale sonographic imaging of the venous structures of the left lower extremity obta ined with color flow and spectral analysis. FINDINGS: Left common femoral vein, greater saphenous vein, profunda femoral vein, femoral vein, popliteal vein , and posterior tibial vein are patent. Normal blood flow, augmentation, and compression within the deep venous system of the left lower extremity. No evidence for DVT. IMPRESSION: No evidence for deep venous thrombosis of the left lower extremity. POS: [facility]
--- NOTE | 2018-04-24 08:42 | RAD ---
PORTABLE SUPINE FRONTAL CHEST RADIOGRAPH: DATE: 04/24/2018. COMPARISON: 01/13/2018. HISTORY: Swelling, pain, generalized weakness. FINDINGS: There is new pulmonary vascular congestion. Midline sternotomy wires are present. There is prominen ce of the cardiac silhouette. Supine imaging is provided, limiting assessment for pneumothorax and p leural fluid. There is interstitial opacity in the perihilar regions. IMPRESSION: Pulmonary vascular congestion with new perihilar interstitial opacity. Findings suggest interstitial pulmonary edema in the proper clinical setting. Evaluation is limited on supine imaging of the ches t. Recommend further assessment via PA and lateral views to better assess mediastinal structures. L ymphadenopathy cannot be excluded. POS: [facility]
--- NOTE | 2018-04-24 08:46 | CT ---
PRELIMINARY REPORT/[facility]/EMERGENTY AFTER-HOURS PROCEDURE CT Head Without Contrast EXAM DATE/TIME: 04/24/2018 5:16 AM CLINICAL HISTORY: 77 years old, female; Signs and symptoms; Weakness, extremity; Patient HX: Er 2; PT states that she h as upper abdominal pain starting two days ago; Associated with nausea, associated with vomiting. Surg ical history of cholecystectomy, section, hysterectomy, nephrectomy TECHNIQUE: Axial computed tomography images of the head/brain without contrast. COMPARISON: No relevant prior studies available. FINDINGS: Brain: No acute intracranial hemorrhage or mass effect. There is decreased attenuation in the periventricular white matter, likely from microvascular disease . There are old lacunar infarcts in the basal ganglia regions/internal capsule bilaterally, and right thalamus. No definite acute infarct by CT. MRI could be more sensitive/specific for detection, as clinically di rected. Ventricles: Ventricle size is normal for age. Bones/joints: No definite acute skull fracture. Sinuses: Opacification of the right aspect of the sphenoid sinus. Included paranasal sinuses otherwis e appear essentially clear. Mastoid air cells: No significant acute finding. Vasculature: Vascular calcifications noted in the internal carotid and vertebral basilar systems. IMPRESSION: 1. No acute intracranial hemorrhage or mass effect. 2. Changes of microvascular disease, and old lacunar infarcts. 3. No definite acute infarct by CT, see above. 4. Other findings discussed above. Thank you for allowing us to participate in the care of your patient. Dictated and Authenticated by: Nikunj Jamil MD 04/24/2018 5:30 AM Central Time ([place] & [place]) FINAL REPORT HEAD CT WITHOUT CONTRAST: DTAE: 04/24/2018. COMPARISON: 12/04/2016. HISTORY: Weakness and pain. FINDINGS: I agree with the preliminary report dictated by Dr. Nikunj Jamil. Imaged paranasal sinuses and mastoi d air cells demonstrate opacification of the right sphenoid sinus. There is multifocal periventricul ar deep and subcortical white matter hypodensity suggesting small-vessel disease. There is mild prom inence of the ventricular system, stable. No intracranial hemorrhage, midline shift, or mass effect. IMPRESSION: 1. Evidence of small vessel disease. If there is clinical concern for acute infarction, brain MRI a dvised. 2. Isolated sphenoid sinus disease, for which followup brain MRI is suggested. POS: [facility]
[2018-04-24] MEDS ORDERED: Ondansetron ODT 4 MG TAB PO PRN (09:10)
[2018-04-24] MEDS ORDERED: Acetaminophen 325 MG TAB PO PRN (09:10)
[2018-04-24] MEDS ORDERED: Ondansetron PF 4 MG/2 ML Vial IVP PRN (09:10)
--- NOTE | 2018-04-24 14:06 | HP ---
PRIMARY CARE PHYSICIAN: Chip Gibson MD CHIEF COMPLAINT: Shortness of breath, lower extremity edema, and generalized weakness. HISTORY OF PRESENT ILLNESS: Ms. Hernandez is a pleasant 77-year-old female with past medical history of hypertension, hyperlipidemia, hypothyroidism, history of prior CVA with left hemiparesis, diabetes mellitus type 2, CHF with diastolic dysfunction, obesity, macular degeneration with blindness, sensorineural hearing loss, dementia, coronary artery disease with history of CABG, who had presented to [facility] with and caregiver earlier this morning, but the states he had noticed the patient had a worsening generalized weakness earlier this morning while they were trying to get her into bed. He had also reported he was noticing some worsening lower extremity edema and redness appear on her legs. The patient does report lower extremity pain, which feels like a dull ache. She states this pain is 4/10. She had denied any chest pain, however, does report some shortness of breath. Chest x-ray did reveal some increased vascular congestion. Lower extremity Doppler was obtained in the ER to rule out DVT and showed no evidence for DVT at this time. Brain CT was also obtained, which demonstrated evidence of small vessel disease. She had also reported nausea earlier this morning; however, no vomiting. There was also a report of increased abdominal distention; however, the patient denies any abdominal pain at the time. Last bowel movement was on 04/21/2018, the patient usually takes Dulcolax at home as needed for her constipation as this has caused her problems in the past. She was last admitted in the hospital in January of 2018 for stool impaction. Her symptoms had resolved after a disk impaction with Dr. Johnson. She was later discharged home with followup with her primary care physician. Since then, she has not had any problems. She had denied any fever or chills, or any recent travel. She states that her old stroke had affected her on the left side. She had reported living in an assisted living facility with her , where she receives 24-hour care from caregivers. REVIEW OF SYSTEMS: All other systems reviewed and are negative unless mentioned in the HPI. PAST MEDICAL HISTORY: The patient lives in [facility] with her and 24-hour caregiver. Past medical history of hypertension; dyslipidemia; hypothyroidism; history of prior CVA with left hemiparesis; diabetes mellitus, type 2; CHF with diastolic dysfunction; obesity; macular degeneration with blindness; sensorineural hearing loss; dementia; and CAD, status post CABG. PAST SURGICAL HISTORY: CABG, retinal detachment repair in left eye, cataract surgery, and cholecystectomy. ALLERGIES: KEFLEX, MORPHINE, AND CODEINE. CURRENT HOME MEDICATIONS: 1. Levothyroxine 100 mcg oral daily. 2. Aspirin 81 mg oral daily. 3. Coreg 12.5 mg oral daily. 4. Claritin 10 mg oral daily. 5. Trazodone 50 mg oral at bedtime. 6. Melatonin 5 mg oral as needed at bedtime. SOCIAL HISTORY: Denies any alcohol, tobacco, or illicit drug use. She lives with her and 24-hour caregiver at [facility]. FAMILY HISTORY: Father has history of heart disease and COPD. Mother had arthritis. PHYSICAL EXAMINATION: VITAL SIGNS: Blood pressure , pulse 67, respirations 12, and O2 saturations 93% on room air. GENERAL: The patient is awake, alert, and oriented x3, mild acute distress noted due to lower extremity pain. HEENT: Atraumatic, normocephalic. Pupils are round and reactive to light. Extraocular muscles are intact. Moist mucous membranes noted. The patient is hard of hearing with hearing aids in place. Oropharynx is clear without exudates or erythema. NECK: Soft, supple. Normal range of motion. Trachea midline. No tenderness. RESPIRATORY: Bilateral breath sounds are diminished, coarse breath sounds at the bases. No wheezing. CARDIOVASCULAR: Positive S1 and S2. Regular rate and rhythm. No murmur appreciated. ABDOMEN: Obese, nontender. Mild distention noted. No rebound. No rigidity. Faint bowel sounds present. BACK: Normal range of motion. Nontender. No CVA tenderness. MUSCULOSKELETAL: Moves all extremities equal, strength 3/5 on the left, strength 5/5 on the right lower extremity noted. Edema, 2+ pitting edema, right and left leg. NEUROLOGIC: Cranial nerves II through XII grossly intact. mild weakness on the left side. Gait, not assessed. The patient is sitting up in wheelchair. SKIN: Warm, dry, and intact. Mild induration noted in lower extremities. Chronic skin changes noted. PSYCHIATRIC: Normal mood and affect. LABORATORY DATA: WBC 8.7, RBC 4.52, hemoglobin 13.7, platelet 266. Sodium 126, potassium 4.9, carbon dioxide 26, anion gap 16, BUN 12, creatinine 0.88, estimated GFR 62, AST 20, ALT 17, and alkaline phosphatase 84. Creatine kinase 141. Troponin 0.022. BNP 263. Lipase 26. Urinalysis showed 100 protein, large blood, small leukocyte esterase, greater than 50 rbc, and 4 to 6 squamous epithelial cells. DIAGNOSTIC IMAGING: Chest x-ray revealed pulmonary vascular congestion. Lower extremity Doppler showed no evidence of DVT. Brain CT did reveal small vessel disease. ASSESSMENT AND PLAN: 1. Acute on chronic congestive heart failure with a diastolic dysfunction, last echocardiogram was in 11/2017, this will be rechecked during this hospital visit for further assessment of her heart failure. She will be started on IV Lasix 40 mg b.i.d. for now and she will be closely monitored. She will also be restarted on her home medications. 2. Hypertension, as above. Continue on the patient's home medications. Add IV hydralazine as needed for an elevated blood pressure greater than 170. 3. Shortness of breath, likely secondary to acute on chronic congestive heart failure. 4. Hyponatremia, likely secondary to fluid overload. She will be placed on IV Lasix and also placed on a fluid restriction diet. BMP will be closely monitored. However, if her sodium does not improve, we will place consult for further evaluation with a Nephrology Service consult. 5. History of hypothyroidism. Continue on the patient's home regimen. 6. Obesity. 7. Diabetes mellitus, type 2. Continue Accu-Cheks and placed on insulin sliding scale. 8. Previous cerebrovascular accident with left hemiparesis, order PT/OT. 9. Hyperlipidemia. Continue home regimen. 10. Constipation. Start on bowel regimen and monitor the patient clinically. If she develops further abdominal pain or worsening distention, we will order an x-ray of her abdomen with possible further consultation as needed. 11. Code status: DNR. This was discussed with her . 12. Surrogate decision maker is her . 13. Deep venous thrombosis prophylaxis and gastrointestinal prophylaxis. DISPOSITION: Pending the patient's progress and clinical findings. Job ID: [id number]
[2018-04-24] MEDS: Furosemide 40 MG/4 ML VIAL SLOW IVP SCH (14:15)
[2018-04-24] MEDS: Famotidine 20 MG TAB PO SCH (21:58)
[2018-04-24] MEDS: Naproxen 500 MG TAB PO PRN (21:58)
[2018-04-25] MEDS: Senokot S 8.6-50 MG TAB PO PRN ×2 (02:22→13:46)
[2018-04-25] MEDS: traMADol HCl 50 MG TAB PO PRN ×3 (02:22→17:02)
[2018-04-25 05:41] LABS: #Eosinphils 0.2 thou/uL (0.0-0.7); #Lymphocytes 0.8 thou/uL (1.20-3.40); #Monocytes 0.6 thou/uL (0.11-0.59); #Neutrophils 8.4 thou/uL (1.40-6.50); %Basophils 0.4 % (0.0-1.0); %Eosinophils 2.1 % (0.0-10.0); %Lymphocytes 8.2 % (21.0-51.0); %Monocytes 6.2 % (0.0-10.0); %Neutrophils 83.1 % (42.0-75.0); Hemoglobin 12.9 g/dL (12.0-16.0); Mean Corpuscular HGB CONC 34.9 g/dL (32.0-36.0); Mean Corpuscular Hemoglobin 30.8 pg (27.0-31.0); Mean Corpuscular Volume 88.2 fL (78.0-98.0); Mean Platelet Volume 8.5 fL (7.4-10.4); Platelet Count 279 thou/uL (130-400); Red Blood Cell (RBC) Count 4.19 mill/uL (4.20-5.40); White Blood Cell (WBC) Count 10.1 thou/uL (4.8-10.8)
[2018-04-25] MEDS: Furosemide 40 MG/4 ML VIAL SLOW IVP SCH ×2 (05:50→13:48)
[2018-04-25 06:03] LABS: Anion Gap 12 mmol/L (10-20); BUN (Urea Nitrogen) 14 mg/dL (9.8-20.1); Calc. Creatinine Clearance 70 mL/min (70-130); Calcium 8.9 mg/dL (7.8-10.44); Carbon Dioxide 25 mmol/L (23-31); Chloride 92 mmol/L (98-107); Estimated GFR-MDRD 53; Glucose 193 mg/dL (83-110); Sodium 125 mmol/L (136-145)
[2018-04-25] MEDS: Naproxen 500 MG TAB PO PRN ×2 (08:52→20:36)
[2018-04-25] MEDS: Famotidine 20 MG TAB PO SCH ×2 (08:54→20:37)
[2018-04-25] MEDS: Sodium Chloride 0.9% 10 ML ONE (08:55)
[2018-04-25] MEDS: hydrALAZINE 20 MG/ML VIAL SLOW IVP PRN ×2 (09:12→16:16)
[2018-04-25] MEDS ORDERED: Dextrose 5% in Water 1,000 ML IV PRN (11:10)
[2018-04-25] MEDS ORDERED: Dextrose 50% Abboject 50 ML SYRINGE SLOW IVP PRN (11:10)
[2018-04-25] MEDS ORDERED: HumaLOG 300 UNITS/3 ML VIAL SC PRN ×2 (11:10)
--- NOTE | 2018-04-25 11:12 | PDOC.EVN ---
Event Note - Event Note Event Note: Patient seen and examined. No new complaints. No overnight events, continue diuresis, treat diastolic CHF, discussed with anjel
[2018-04-25] MEDS ORDERED: Polyethylene Glycol 3350 17 GM Packet PO SCH (11:30)
--- NOTE | 2018-04-25 17:03 | PDOC.PN ---
- Subjective Encounter Start Date: 04/25/18 Encounter Start Time: 17:00 Patient lying in bed with and caregiver at bedside. She reports feeling better and wanting to go home. Swelling improving, sodium remains low at 125. She denies chest pain, shortness of breath. No abdominal pain, no BM. Voiding well. Echo pending - Objective Resuscitation Status - Order Detail: 04/24/18 09:10 Resuscitation Status Routine Co-Sign Provider: Resuscitation Status: DNAR: NO Resuscitation Discussed with: and patient MAR Reviewed: Yes Vital Signs & Weight: Vital Signs (12 hours) Temp Pulse Resp BP BP Pulse Ox 04/25/18 16:16 83 205/93 H 04/25/18 16:09 98.3 F 83 18 205/93 H 94 L 04/25/18 12:05 98.2 F 81 19 179/79 H 94 L 04/25/18 09:45 81 164/79 H 04/25/18 09:12 76 188/91 H 04/25/18 08:32 98.4 F 76 20 188/91 H 95 Weight Weight 211 lb 1.6 oz I&O: 04/24/18 04/25/18 04/26/18 06:59 06:59 06:59 Intake Total 720 3 Output Total 1075 Balance -355 3 Result Diagrams: 04/25/18 05:26 04/25/18 05:26 Additional Labs: Accuchecks 04/25/18 04/25/18 04/24/18 11:49 06:07 21:09 POC Glucose 165 H 180 H 224 H 04/24/18 16:38 POC Glucose 157 H Radiology Reviewed by me: Yes Phys Exam - Physical Examination Constitutional: NAD HEENT: PERRLA, moist MMs, oral pharynx no lesions Hard of hearing Neck: no nodes, no JVD Respiratory: no wheezing, no rales Coarse breath sounds Cardiovascular: RRR, no significant murmur, no rub Gastrointestinal: soft, non-tender, positive bowel sounds Musculoskeletal: pulses present 1-2+ edema lower extremities Neurological: normal sensation, moves all 4 limbs Weakness noted on left side, at baseline Lymphatic: no nodes Psychiatric: normal affect, A&O x 3 Skin: no rash, normal turgor, cap refill <2 seconds Dx/Plan (1) Diastolic heart failure Code(s): I50.30 - UNSPECIFIED DIASTOLIC (CONGESTIVE) HEART FAILURE Status: Acute (2) Hyponatremia Code(s): E87.1 - HYPO-OSMOLALITY AND HYPONATREMIA Status: Acute Comment: will start IV fluids 0.9% NS, she is on docusate daily will d/c that, and she is likely loosing sodium in stool. (3) CAD (coronary artery disease) Code(s): I25.10 - ATHSCL HEART DISEASE OF [place] CORONARY ARTERY W/O ANG PCTRS Status: Chronic Qualifiers: Coronary Disease-Associated Artery/Lesion type: bypass graft [place] vs. transplanted heart: [place] heart Associated angina: without angina Qualified Code(s): I25.810 - Atherosclerosis of coronary artery bypass graft(s) without angina pectoris (4) DM type 2 (diabetes mellitus, type 2) Status: Chronic Qualifiers: Diabetes mellitus halfway insulin use: with buttermaker continuous churn use Diabetes mellitus complication status: with unspecified complications Qualified Code(s) : E11.8 - Type 2 diabetes mellitus with unspecified complications; Z79.4 - longterm (current) use of insulin Comment: continue on SSI, as needed. (5) Dyslipidemia Code(s): E78.5 - HYPERLIPIDEMIA, UNSPECIFIED Status: Chronic - Plan cont current plan of care, plan discussed w/ family, PT/OT * Continue lasix and other medical management * Await echo results * Monitor labs and vitals, sodium remains low at 125, acute on chronic hypoNa * Continue fluid restriction and monitor I&Os * PT/OT * Bowel regimen
[2018-04-25] MEDS: Melatonin 3 MG TAB PO PRN (20:37)
[2018-04-25] MEDS: traZODone HCl 50 MG TAB PO PRN (21:19)
[2018-04-26 05:50] LABS: #Basophils 0.1 thou/uL (0.0-0.2); #Eosinphils 0.2 thou/uL (0.0-0.7); #Monocytes 0.9 thou/uL (0.11-0.59); %Basophils 0.7 % (0.0-1.0); %Eosinophils 1.5 % (0.0-10.0); %Lymphocytes 10.1 % (21.0-51.0); %Monocytes 8.5 % (0.0-10.0); %Neutrophils 79.1 % (42.0-75.0); Hemoglobin 13.2 g/dL (12.0-16.0); Mean Corpuscular HGB CONC 33.8 g/dL (32.0-36.0); Mean Corpuscular Hemoglobin 29.8 pg (27.0-31.0); Mean Corpuscular Volume 88.4 fL (78.0-98.0); Mean Platelet Volume 7.9 fL (7.4-10.4); Platelet Count 268 thou/uL (130-400); RBC Distribution Width 13.3 % (11.5-14.5); Red Blood Cell (RBC) Count 4.43 mill/uL (4.20-5.40); White Blood Cell (WBC) Count 10.1 thou/uL (4.8-10.8)
[2018-04-26 06:01] LABS: Anion Gap 18 mmol/L (10-20); BUN (Urea Nitrogen) 16 mg/dL (9.8-20.1); Calc. Creatinine Clearance 61 mL/min (70-130); Carbon Dioxide 24 mmol/L (23-31); Chloride 92 mmol/L (98-107); Estimated GFR-MDRD 46; Glucose 139 mg/dL (83-110); Potassium 3.9 mmol/L (3.5-5.1); Sodium 130 mmol/L (136-145)
[2018-04-26] MEDS: Furosemide 40 MG/4 ML VIAL SLOW IVP SCH ×2 (06:28→14:48)
[2018-04-26] MEDS ORDERED: Polyethylene Glycol 3350 17 GM Packet PO SCH (09:00)
[2018-04-26] MEDS ORDERED: INSULIN DEGLUDEC 35 UNIT SQ SCH (09:00)
[2018-04-26] MEDS: PRE FILLED SC SCH (11:01)
[2018-04-26] MEDS: INSULIN GLARGINE SC SCH (11:01)
--- NOTE | 2018-04-26 12:01 | PDOC.PN ---
- Subjective Encounter Start Date: 04/26/18 Encounter Start Time: 11:15 Subjective: Complaining of pain everywhere. Per no bowel movement x 6 days. -: No flatus. Patient denies abdo pain. No vomiting. -: Difficulty resting due to discomfort. - Objective Resuscitation Status - Order Detail: 04/24/18 09:10 Resuscitation Status Routine Co-Sign Provider: Resuscitation Status: DNAR: NO Resuscitation Discussed with: and patient Vital Signs & Weight: Vital Signs (12 hours) Temp Pulse Resp BP BP BP Pulse Ox 04/26/18 08:00 97.9 F 84 20 158/72 H 158/73 H 96 04/26/18 04:10 97.9 F 88 18 173/76 H 95 Weight Weight 206 lb I&O: 04/25/18 04/26/18 04/27/18 06:59 06:59 06:59 Intake Total 720 592 Output Total 1075 1650 Balance -827 -0799 Result Diagrams: 04/26/18 05:33 04/26/18 05:33 Additional Labs: Accuchecks 04/26/18 04/26/18 04/25/18 11:12 05:16 20:48 POC Glucose 128 H 152 H 170 H 04/25/18 04/25/18 16:26 11:49 POC Glucose 159 H 165 H Phys Exam - Physical Examination Appears to be in discomfort, complaining of pain "everywhere" HEENT: PERRLA, moist MMs Neck: no nodes, supple Cardiovascular: RRR Gastrointestinal: soft, non-tender Slight distention/obese, no bowel sounds Skin: no rash Dx/Plan (1) Constipation Code(s): K59.00 - CONSTIPATION, UNSPECIFIED Status: Acute (2) Diastolic heart failure Code(s): I50.30 - UNSPECIFIED DIASTOLIC (CONGESTIVE) HEART FAILURE Status: Chronic (3) Hyponatremia Code(s): E87.1 - HYPO-OSMOLALITY AND HYPONATREMIA Status: Acute Comment: will start IV fluids 0.9% NS, she is on docusate daily will d/c that, and she is likely loosing sodium in stool. (4) DM type 2 (diabetes mellitus, type 2) Status: Chronic Qualifiers: Diabetes mellitus terminal operations manager insulin use: with mcc use Diabetes mellitus complication status: with unspecified complications Qualified Code(s) : E11.8 - Type 2 diabetes mellitus with unspecified complications; Z79.4 - terminal make up operator (current) use of insulin Comment: continue on SSI, as needed. (5) Dyslipidemia Code(s): E78.5 - HYPERLIPIDEMIA, UNSPECIFIED Status: Chronic (6) HTN (hypertension) Code(s): I10 - ESSENTIAL (PRIMARY) HYPERTENSION Status: Chronic Qualifiers: Hypertension type: essential hypertension (7) Hypothyroidism Code(s): E03.9 - HYPOTHYROIDISM, UNSPECIFIED Status: Chronic Qualifiers: Hypothyroidism type: unspecified Qualified Code(s): E03.9 - Hypothyroidism , unspecified - Plan cont current plan of care Miralax and Senna BID for constipation. Hold if develops loose stools. -: Consider abdo xray if no improvement or develops n/v, abdo pain. -: Will discuss with Dr. Suero for further recommendations. -: Continue analgesia. * .
[2018-04-26] MEDS: traMADol HCl 50 MG TAB PO PRN ×2 (12:14→20:01)
[2018-04-26] MEDS ORDERED: Sodium Chloride 0.9% 10 ML ONE (14:13)
[2018-04-26] MEDS: Sodium Chloride 0.9% 10 ML ONE (14:48)
[2018-04-26] MEDS: Clopidogrel Bisulfate 75 MG TAB PO SCH (14:52)
[2018-04-26] MEDS: Carvedilol 25 MG TAB PO SCH (14:52)
[2018-04-26] MEDS: Calcium Polycarbophil 625 MG TAB PO SCH (14:54)
[2018-04-26] MEDS: Famotidine 20 MG TAB PO SCH ×2 (14:54→19:53)
[2018-04-26] MEDS: Lactinex Tablet PO SCH (17:32)
[2018-04-26] MEDS: Senokot 8.6 MG TAB PO SCH (19:53)
[2018-04-26] MEDS: Polyethylene Glycol 3350 17 GM Packet PO SCH (19:54)
[2018-04-26] MEDS: Melatonin 3 MG TAB PO PRN (20:06)
[2018-04-27] MEDS: traMADol HCl 50 MG TAB PO PRN (02:44)
[2018-04-27] MEDS: Furosemide 40 MG/4 ML VIAL SLOW IVP SCH ×2 (05:24→14:57)
[2018-04-27] MEDS ORDERED: Loratadine 10 MG TAB PO PRN ×2 (07:35→07:36)
[2018-04-27] MEDS ORDERED: Diabetic Tussin 200 MG/10 ML UDCUP PO PRN (07:36)
[2018-04-27] MEDS ORDERED: Loperamide HCl 2 MG CAP PO PRN (07:36)
[2018-04-27] MEDS ORDERED: Sodium Chloride 0.65% Nasal 44 ML BOT EA NARE PRN (07:36)
[2018-04-27] MEDS ORDERED: Artificial Tears 18 DROP/0.9 ML EA EYE PRN (07:36)
[2018-04-27] MEDS ORDERED: Eucerin (Mineral Oil/Petrolatum,White) 30 gm Jar TOP PRN (07:36)
[2018-04-27] MEDS ORDERED: Bisacodyl 10 MG SUPP PR PRN (07:36)
[2018-04-27] MEDS: PRE FILLED SC SCH (08:01)
[2018-04-27] MEDS: INSULIN GLARGINE SC SCH (08:01)
[2018-04-27] MEDS: Senokot 8.6 MG TAB PO SCH ×2 (08:02→20:35)
[2018-04-27] MEDS: Carvedilol 25 MG TAB PO SCH (08:02)
[2018-04-27] MEDS: Clopidogrel Bisulfate 75 MG TAB PO SCH (08:03)
[2018-04-27] MEDS: Lactinex Tablet PO SCH (08:03)
[2018-04-27] MEDS: Ascorbic Acid 500 mg Chewable Tablet PO SCH (08:06)
[2018-04-27] MEDS: Multivit, Therapeutic 1 TAB PO SCH (08:06)
[2018-04-27] MEDS: Docusate 100 MG CAP PO SCH ×2 (08:08→20:35)
[2018-04-27] MEDS: Polyethylene Glycol 3350 17 GM Packet PO SCH ×2 (08:10→20:35)
[2018-04-27] MEDS: Enoxaparin Sodium 40 MG/0.4 ML SYRINGE SC SCH (08:12)
[2018-04-27] MEDS ORDERED: LEVOTHYROXINE SODIUM 100 MCG PO SCH (09:00)
[2018-04-27] MEDS ORDERED: Non-Formulary Item 1 EACH (Ascorbic Acid [Vitamin C] 1,000 MG) PO SCH (09:00)
[2018-04-27] MEDS ORDERED: CHOLECALCIFEROL PO SCH (09:00)
[2018-04-27] MEDS ORDERED: Non-Formulary Item 1 EACH (Multivitamin [Multivitamins] 1 CAP) PO SCH (09:00)
[2018-04-27] MEDS ORDERED: Docusate 100 MG CAP PO SCH (09:00)
--- NOTE | 2018-04-27 10:09 | RAD ---
ABDOMEN ONE VIEW: History: Abdominal pain. FINDINGS: A large amount of stool is apparent throughout the colon and rectum. Small bowel gas pattern is nonsp ecific. Degenerative changes of the lumbar spine and hips. Phleboliths project over the pelvis. Metal lic clips overlie the gallbladder fossa. IMPRESSION: 1. Constipation. Possible fecal impaction. 2. Status post cholecystectomy. POS: [facility]
--- NOTE | 2018-04-27 10:43 | PDOC.PN ---
- Subjective Encounter Start Date: 04/27/18 Encounter Start Time: 08:50 -: old records requested/rev Patient seen and examined. No BM, No overnight events pt is uncomfortable, hurting all over - Objective Resuscitation Status - Order Detail: 04/24/18 09:10 Resuscitation Status Routine Co-Sign Provider: Resuscitation Status: DNAR: NO Resuscitation Discussed with: and patient MAR Reviewed: Yes Vital Signs & Weight: Vital Signs (12 hours) Temp Pulse Resp BP Pulse Ox 04/27/18 08:21 98.7 F 70 20 179/84 H 97 04/27/18 08:00 97 04/27/18 00:00 18 146/72 H 94 L Weight Weight 206 lb I&O: 04/26/18 04/27/18 04/28/18 06:59 06:59 06:59 Intake Total 592 370 Output Total 1650 100 Balance -1058 270 Result Diagrams: 04/26/18 05:33 04/26/18 05:33 Additional Labs: Accuchecks 04/27/18 04/26/18 04/26/18 04:24 21:51 16:47 POC Glucose 93 119 H 131 H 04/26/18 11:12 POC Glucose 128 H Radiology Reviewed by me: Yes (xray abdomen reviwed) Phys Exam - Physical Examination Constitutional: NAD HEENT: PERRLA, sclera anicteric Neck: no JVD, supple Respiratory: no wheezing, no rales, no rhonchi Cardiovascular: RRR, no significant murmur, no rub Gastrointestinal: soft, non-tender, no distention, positive bowel sounds Musculoskeletal: pulses present, edema present Neurological: moves all 4 limbs Lymphatic: no nodes Psychiatric: normal affect Skin: no rash, normal turgor Dx/Plan - Plan cont current plan of care, continue antibiotics, PT/OT * . Review of Systems - Review of Systems Eyes: negative: Pain, Vision Change, Conjunctivae Inflammation, Eyelid Inflammation, Redness, Other ENT: negative: Ear Pain, Ear Discharge, Nose Pain, Nose Discharge, Nose Congestion, Mouth Pain, Mouth Swelling, Throat Pain, Throat Swelling, Other Respiratory: negative: Cough, Dry, Shortness of Breath, Hemoptysis, SOB with Excertion, Pleuritic Pain, Sputum, Wheezing Cardiovascular: negative: chest pain, palpitations, orthopnea, paroxysmal nocturnal dyspnea, edema, light headedness, other Gastrointestinal: Constipation. negative: Nausea, Vomiting, Abdominal Pain, Diarrhea, Melena, Hematochezia, Other Genitourinary: negative: Dysuria, Frequency, Incontinence, Hematuria, Retention , Other Musculoskeletal: negative: Neck Pain, Shoulder Pain, Arm Pain, Back Pain, Hand Pain, Leg Pain, Foot Pain, Other - Medications/Allergies Allergies/Adverse Reactions: Allergies Allergy/AdvReac Type Severity Reaction Status Date / Time acetaminophen Allergy Verified 04/24/18 16:40 [From Tylenol-Codeine #3] benzonatate Allergy Verified 04/24/18 16:40 [From Tessalon Perles] cephalexin monohydrate Allergy Verified 04/24/18 16:40 [From Keflex] codeine Allergy Verified 04/24/18 16:40 gabapentin Allergy Verified 04/24/18 16:40 metformin Allergy pt doesn't Verified 04/24/18 16:40 like it morphine Allergy Verified 04/24/18 16:40 Medications: Current Medications Acidophilus (Floranex) 1 tab PO DAILY [facility] Last Admin: 04/27/18 08:03 Dose: 1 tab Artificial Tears (Tears Naturale) 2 drop EA EYE PRN PRN PRN Reason: Dry Eyes Ascorbic Acid (Vitamin C) 1,000 mg PO DAILY [facility] Last Admin: 04/27/18 08:06 Dose: 1,000 mg Aspirin (Aspirin Chewable) 81 mg PO DAILY [facility] Last Admin: 04/27/18 08:03 Dose: 81 mg Bisacodyl (Dulcolax) 10 mg IA DAILYPRN PRN PRN Reason: Constipation Calcium Polycarbophil (Fibercon) 625 mg PO DAILY [facility] Last Admin: 04/26/18 14:54 Dose: 625 mg Carvedilol (Coreg) 12.5 mg PO DAILY [facility] Last Admin: 04/27/18 08:02 Dose: 12.5 mg Cholecalciferol (Vitamin D3) 2,000 units PO DAILY [facility] Last Admin: 04/27/18 08:06 Dose: 2,000 units Ciprofloxacin (Cipro) 250 mg PO BID@0600,2000 [facility] Clopidogrel Bisulfate (Plavix) 75 mg PO QAM [facility] Last Admin: 04/27/18 08:03 Dose: 75 mg Dextrose/Water (Dextrose 50%) 25 gm SLOW IVP PRN PRN PRN Reason: Hypoglycemia Docusate Sodium (Colace) 100 mg PO BID [facility] Last Admin: 04/27/18 08:08 Dose: 100 mg Enoxaparin Sodium (Lovenox) 40 mg SC 0900 [facility] Last Admin: 04/27/18 08:12 Dose: 40 mg Furosemide (Lasix) 40 mg SLOW IVP 0600,1400 [facility] Last Admin: 04/27/18 05:24 Dose: 40 mg Glucagon (Glucagon) 1 mg IM PRN PRN PRN Reason: Hypoglycemia Guaifenesin (Robitussin Sf) 200 mg PO Q4H PRN PRN Reason: Cough Hydralazine HCl (Apresoline) 10 mg SLOW IVP Q4H PRN PRN Reason: .SBP >180 Last Admin: 04/25/18 16:16 Dose: 10 mg Dextrose/Water (D5w) 1,000 mls @ 0 mls/hr IV .Q0M PRN PRN Reason: Hypoglycemia Insulin Glargine 35 units/ (Miscellaneous Medication) 0.35 mls @ 0 mls/hr SC DAILY [facility] Last Admin: 04/27/18 08:01 Dose: 0.35 mls Insulin Human Lispro (Humalog) 0 units SC .MILD SLIDING SCALE PRN PRN Reason: Mild Correctional Scale Insulin Human Lispro (Humalog) 0 units SC .BEDTIME SLIDING SC PRN PRN Reason: Bedtime Correctional Scale Levothyroxine Sodium (Synthroid) 100 mcg PO 0600 [facility] Loperamide HCl (Imodium) 2 mg PO PRN PRN PRN Reason: Diarrhea/Loose Stools Loratadine (Claritin) 10 mg PO DAILYPRN PRN PRN Reason: Sinus Symptoms Melatonin (Melatonin) 3 mg PO HS PRN PRN Reason: insomnia Last Admin: 04/26/18 20:06 Dose: 3 mg Mineral Oil/White Petrolatum (Eucerin Cream) 0 gm TOP BIDPRN PRN PRN Reason: Dry Skin Multivitamins (Theragran) 1 tab PO DAILY [facility] Last Admin: 04/27/18 08:06 Dose: 1 tab Ondansetron HCl (Zofran Odt) 4 mg PO Q6H PRN PRN Reason: Nausea/Vomiting Ondansetron HCl (Zofran) 4 mg IVP Q6H PRN PRN Reason: Nausea/Vomiting Pantoprazole Sodium (Protonix) 40 mg PO DAILY [facility] Last Admin: 04/27/18 08:06 Dose: 40 mg Polyethylene Glycol (Miralax) 17 gm PO BID [facility] Last Admin: 04/27/18 08:10 Dose: 17 gm Senna (Senokot) 2 tab PO BID [facility] Last Admin: 04/27/18 08:02 Dose: 2 tab Sodium Biphosphate/Sodium Phosphate (Fleet Enema) 133 ml IA ONE [facility] Sodium Chloride ([place] Nasal [place] 0.65%) 0 ml EA NARE QIDPRN PRN PRN Reason: Nasal Congestion Sodium Chloride (Flush - Normal Saline) 10 ml IVF Q12HR [facility] Last Admin: 04/27/18 08:10 Dose: 10 ml Sodium Chloride (Flush - Normal Saline) 10 ml IVF PRN PRN PRN Reason: Saline Flush Tramadol HCl (Ultram) 50 mg PO Q6H PRN PRN Reason: Pain 4-6 Last Admin: 04/27/18 02:44 Dose: 50 mg Trazodone HCl (Desyrel) 25 mg PO HS PRN PRN Reason: Pain Last Admin: 04/25/18 21:19 Dose: 25 mg
[2018-04-27] MEDS ORDERED: Fleet Enema 133 ML BOT PR SCH (10:45)
[2018-04-27] MEDS: Calcium Polycarbophil 625 MG TAB PO SCH (15:04)
[2018-04-27] MEDS ORDERED: Ketorolac Tromethamine 30 MG/ML VIAL IVP PRN (15:23)
[2018-04-27] MEDS: hydrALAZINE 20 MG/ML VIAL SLOW IVP PRN (18:46)
[2018-04-27] MEDS: traZODone HCl 50 MG TAB PO PRN (20:34)
[2018-04-27] MEDS: Cipro 250 MG TAB PO SCH (20:35)
[2018-04-27] MEDS: Melatonin 3 MG TAB PO PRN (20:45)
[2018-04-28] MEDS: Levothyroxine Sodium 100 MCG TAB PO SCH (05:09)
[2018-04-28] MEDS: Furosemide 40 MG/4 ML VIAL SLOW IVP SCH (05:09)
[2018-04-28] MEDS: Cipro 250 MG TAB PO SCH (05:12)
[2018-04-28 08:00] LABS: Hemoglobin 13.9 g/dL (12.0-16.0); Mean Corpuscular HGB CONC 33.6 g/dL (32.0-36.0); Mean Corpuscular Hemoglobin 29.7 pg (27.0-31.0); Mean Corpuscular Volume 88.3 fL (78.0-98.0); Mean Platelet Volume 7.8 fL (7.4-10.4); Platelet Count 293 thou/uL (130-400); RBC Distribution Width 13.4 % (11.5-14.5); Red Blood Cell (RBC) Count 4.69 mill/uL (4.20-5.40); White Blood Cell (WBC) Count 18.1 thou/uL (4.8-10.8)
[2018-04-28 08:08] LABS: Anion Gap 18 mmol/L (10-20); BUN (Urea Nitrogen) 26 mg/dL (9.8-20.1); Calc. Creatinine Clearance 51 mL/min (70-130); Calcium 9.2 mg/dL (7.8-10.44); Carbon Dioxide 26 mmol/L (23-31); Chloride 96 mmol/L (98-107); Estimated GFR-MDRD 38; Glucose 84 mg/dL (83-110); Potassium 3.8 mmol/L (3.5-5.1); Sodium 136 mmol/L (136-145)
[2018-04-28 08:13] LABS: Band 5 % (5-11); Lymphocytes 2 % (21-51); MDiff Complete? YES; Monocytes 4 % (0-10); Neutrophil 87 % (42-75); RBC Morphology Normal
[2018-04-28] MEDS: Carvedilol 25 MG TAB PO SCH (09:05)
[2018-04-28] MEDS: Polyethylene Glycol 3350 17 GM Packet PO SCH ×2 (09:05→21:40)
[2018-04-28] MEDS: Lactinex Tablet PO SCH (09:07)
[2018-04-28] MEDS: Ascorbic Acid 500 mg Chewable Tablet PO SCH (09:07)
[2018-04-28] MEDS: Senokot 8.6 MG TAB PO SCH ×2 (09:08→21:40)
[2018-04-28] MEDS: Multivit, Therapeutic 1 TAB PO SCH (09:08)
[2018-04-28] MEDS: Docusate 100 MG CAP PO SCH ×2 (09:08→21:40)
[2018-04-28] MEDS: Enoxaparin Sodium 40 MG/0.4 ML SYRINGE SC SCH (09:16)
[2018-04-28] MEDS: Clopidogrel Bisulfate 75 MG TAB PO SCH (09:17)
[2018-04-28] MEDS: Calcium Polycarbophil 625 MG TAB PO SCH (09:18)
[2018-04-28] MEDS ORDERED: Fleet Enema 133 ML BOT PR SCH (10:00)
--- NOTE | 2018-04-28 11:15 | PDOC.PN ---
- Subjective Encounter Start Date: 04/28/18 Encounter Start Time: 09:15 per career development coordinator, pt is declining and not able to tolerate PO, has scant BM after enema, uncomfortable - Objective Resuscitation Status - Order Detail: 04/24/18 09:10 Resuscitation Status Routine Co-Sign Provider: Resuscitation Status: DNAR: NO Resuscitation Discussed with: and patient MAR Reviewed: Yes Vital Signs & Weight: Vital Signs (12 hours) Temp Pulse Resp BP Pulse Ox 04/28/18 07:46 99.2 F 86 20 181/84 H 100 04/28/18 04:00 99.0 F 85 20 176/96 H 100 04/28/18 01:41 99.2 F 77 20 155/76 H 99 Weight Weight 206 lb I&O: 04/27/18 04/28/18 04/29/18 06:59 06:59 06:59 Intake Total 370 320 Output Total 100 400 Balance 270 -80 Result Diagrams: 04/28/18 07:25 04/28/18 07:25 Additional Labs: Accuchecks 04/28/18 04/28/18 04/27/18 04:06 01:05 20:37 POC Glucose 92 87 87 04/27/18 04/27/18 16:31 12:03 POC Glucose 67 L 75 Phys Exam - Physical Examination Constitutional: NAD uncomfortable HEENT: PERRLA, sclera anicteric Neck: no JVD, supple Respiratory: no wheezing, no rales, no rhonchi Cardiovascular: RRR, no significant murmur, no rub Gastrointestinal: soft, positive bowel sounds Musculoskeletal: no edema, pulses present Neurological: non-focal Lymphatic: no nodes Psychiatric: normal affect Skin: no rash, normal turgor Dx/Plan (1) Acute on chronic combined systolic and diastolic ACC/AHA stage C congestive heart failure Code(s): I50.43 - ACUTE ON CHRONIC COMBINED SYSTOLIC AND DIASTOLIC HRT FAIL Status: Acute (2) Constipation Code(s): K59.00 - CONSTIPATION, UNSPECIFIED Status: Acute (3) Hyponatremia Code(s): E87.1 - HYPO-OSMOLALITY AND HYPONATREMIA Status: Acute Comment: (4) UTI (urinary tract infection) Status: Acute Qualifiers: Urinary tract infection type: acute cystitis Hematuria presence: without hematuria Qualified Code(s): N30.00 - Acute cystitis without hematuria (5) CAD (coronary artery disease) Code(s): I25.10 - ATHSCL HEART DISEASE OF [place] CORONARY ARTERY W/O ANG PCTRS Status: Chronic Qualifiers: Coronary Disease-Associated Artery/Lesion type: bypass graft [place] vs. transplanted heart: [place] heart Associated angina: without angina Qualified Code(s): I25.810 - Atherosclerosis of coronary artery bypass graft(s) without angina pectoris (6) DM type 2 (diabetes mellitus, type 2) Status: Chronic Qualifiers: Diabetes mellitus senior care insulin use: with terminal computer operator use Diabetes mellitus complication status: with unspecified complications Qualified Code(s) : E11.8 - Type 2 diabetes mellitus with unspecified complications; Z79.4 - long-term (current) use of insulin Comment: continue on SSI, as needed. (7) Dyslipidemia Code(s): E78.5 - HYPERLIPIDEMIA, UNSPECIFIED Status: Chronic (8) HTN (hypertension) Code(s): I10 - ESSENTIAL (PRIMARY) HYPERTENSION Status: Chronic Qualifiers: Hypertension type: essential hypertension (9) Hypothyroidism Code(s): E03.9 - HYPOTHYROIDISM, UNSPECIFIED Status: Chronic Qualifiers: Hypothyroidism type: unspecified Qualified Code(s): E03.9 - Hypothyroidism , unspecified (10) Severe mitral regurgitation Code(s): I34.0 - NONRHEUMATIC MITRAL (VALVE) INSUFFICIENCY Status: Chronic (11) Severe tricuspid regurgitation Code(s): I07.1 - RHEUMATIC TRICUSPID INSUFFICIENCY Status: Chronic - Plan cont current plan of care, continue antibiotics * change cipro to IV levaquin * as her underlying problem is not clear and she is declining, i will get CT chest abdomen and pelvis as she can not provide any clue to the problems. * will DC lasix * will give fleet enema * medication reviewed as below * symptomatic treatment * repeat labs tomorrow Review of Systems - Review of Systems Other: unable to review with pt and not reliable due to her cognitive status - Medications/Allergies Allergies/Adverse Reactions: Allergies Allergy/AdvReac Type Severity Reaction Status Date / Time acetaminophen Allergy Verified 04/24/18 16:40 [From Tylenol-Codeine #3] benzonatate Allergy Verified 04/24/18 16:40 [From Tessalon Perles] cephalexin monohydrate Allergy Verified 04/24/18 16:40 [From Keflex] codeine Allergy Verified 04/24/18 16:40 gabapentin Allergy Verified 04/24/18 16:40 metformin Allergy pt doesn't Verified 04/24/18 16:40 like it morphine Allergy Verified 04/24/18 16:40 Medications: Current Medications Acidophilus (Floranex) 1 tab PO DAILY [facility] Last Admin: 04/28/18 09:07 Dose: 1 tab Artificial Tears (Tears Naturale) 2 drop EA EYE PRN PRN PRN Reason: Dry Eyes Ascorbic Acid (Vitamin C) 1,000 mg PO DAILY [facility] Last Admin: 04/28/18 09:07 Dose: 1,000 mg Aspirin (Aspirin Chewable) 81 mg PO DAILY [facility] Last Admin: 04/28/18 09:07 Dose: 81 mg Bisacodyl (Dulcolax) 10 mg [place] DAILYPRN PRN PRN Reason: Constipation Calcium Polycarbophil (Fibercon) 625 mg PO DAILY [facility] Last Admin: 04/28/18 09:18 Dose: 625 mg Carvedilol (Coreg) 12.5 mg PO DAILY [facility] Last Admin: 04/28/18 09:05 Dose: 12.5 mg Cholecalciferol (Vitamin D3) 2,000 units PO DAILY [facility] Last Admin: 04/28/18 09:07 Dose: 2,000 units Clopidogrel Bisulfate (Plavix) 75 mg PO QAM [facility] Last Admin: 04/28/18 09:17 Dose: 75 mg Dextrose/Water (Dextrose 50%) 25 gm SLOW IVP PRN PRN PRN Reason: Hypoglycemia Last Admin: 04/27/18 16:36 Dose: 25 gm Docusate Sodium (Colace) 100 mg PO BID [facility] Last Admin: 04/28/18 09:08 Dose: Not Given Enoxaparin Sodium (Lovenox) 40 mg SC 0900 [facility] Last Admin: 04/28/18 09:16 Dose: 40 mg Glucagon (Glucagon) 1 mg IM PRN PRN PRN Reason: Hypoglycemia Guaifenesin (Robitussin Sf) 200 mg PO Q4H PRN PRN Reason: Cough Hydralazine HCl (Apresoline) 10 mg SLOW IVP Q4H PRN PRN Reason: .SBP >180 Last Admin: 04/27/18 18:46 Dose: 10 mg Dextrose/Water (D5w) 1,000 mls @ 0 mls/hr IV .Q0M PRN PRN Reason: Hypoglycemia Insulin Glargine 35 units/ (Miscellaneous Medication) 0.35 mls @ 0 mls/hr SC DAILY [facility] Last Admin: 04/27/18 08:01 Dose: 0.35 mls Levofloxacin 500 mg/ Device 100 mls @ 100 mls/hr IVPB Q24HR [facility] Insulin Human Lispro (Humalog) 0 units SC .MILD SLIDING SCALE PRN PRN Reason: Mild Correctional Scale Insulin Human Lispro (Humalog) 0 units SC .BEDTIME SLIDING SC PRN PRN Reason: Bedtime Correctional Scale Ketorolac Tromethamine (Toradol) 15 mg IVP Q6H PRN PRN Reason: Pain Stop: 05/02/18 15:24 Last Admin: 04/27/18 16:40 Dose: 15 mg Levothyroxine Sodium (Synthroid) 100 mcg PO 0600 [facility] Last Admin: 04/28/18 05:09 Dose: 100 mcg Loperamide HCl (Imodium) 2 mg PO PRN PRN PRN Reason: Diarrhea/Loose Stools Loratadine (Claritin) 10 mg PO DAILYPRN PRN PRN Reason: Sinus Symptoms Melatonin (Melatonin) 3 mg PO HS PRN PRN Reason: insomnia Last Admin: 04/27/18 20:45 Dose: 3 mg Mineral Oil/White Petrolatum (Eucerin Cream) 0 gm TOP BIDPRN PRN PRN Reason: Dry Skin Multivitamins (Theragran) 1 tab PO DAILY [facility] Last Admin: 04/28/18 09:08 Dose: 1 tab Ondansetron HCl (Zofran Odt) 4 mg PO Q6H PRN PRN Reason: Nausea/Vomiting Ondansetron HCl (Zofran) 4 mg IVP Q6H PRN PRN Reason: Nausea/Vomiting Pantoprazole Sodium (Protonix) 40 mg PO DAILY [facility] Last Admin: 04/28/18 09:08 Dose: 40 mg Polyethylene Glycol (Miralax) 17 gm PO BID [facility] Last Admin: 04/28/18 09:05 Dose: 17 gm Senna (Senokot) 2 tab PO BID [facility] Last Admin: 04/28/18 09:08 Dose: 2 tab Sodium Biphosphate/Sodium Phosphate (Fleet Enema) 133 ml [place] A Stop: 04/28/18 18:00 Sodium Chloride ([place] Nasal [place] 0.65%) 0 ml EA NARE QIDPRN PRN PRN Reason: Nasal Congestion Sodium Chloride (Flush - Normal Saline) 10 ml IVF Q12HR [facility] Last Admin: 04/28/18 09:15 Dose: 10 ml Sodium Chloride (Flush - Normal Saline) 10 ml IVF PRN PRN PRN Reason: Saline Flush Tramadol HCl (Ultram) 50 mg PO Q6H PRN PRN Reason: Pain 4-6 Last Admin: 04/27/18 02:44 Dose: 50 mg Trazodone HCl (Desyrel) 25 mg PO HS PRN PRN Reason: Pain Last Admin: 04/27/18 20:34 Dose: 25 mg
[2018-04-28] MEDS ORDERED: ISOVUE-370 76%-LOCM 1 ML ONE (11:38)
[2018-04-28] MEDS: INSULIN GLARGINE SC SCH (12:42)
[2018-04-28] MEDS: PRE FILLED SC SCH (12:42)
--- NOTE | 2018-04-28 13:09 | CT ---
CT CHEST WITH IV CONTRAST: CT ABDOMEN AND PELVIS WITH IV CONTRAST: HISTORY: Abdomen and chest pain. Sepsis. COMPARISON: 01/13/2018 FINDINGS: The lungs are somewhat hyperinflated with scattered areas of scarring and mild interstitial thickenin g. Scattered small bullae. No pleural fluid or pneumothorax. Postoperative changes in the mediastinum with articular calcifications. Nonenlarged, nonspecific lym ph nodes scattered about the mediastinum. The gallbladder is surgically absent. Nonobstructing 1 cm calculus at the superior pole of the right kidney is stable. Dystrophic calcification in the anterior left lower quadrant abdominal fat is aga in demonstrated. There is a large amount of stool within the sigmoid colon and rectum. The rectum i s now distended up to 11.8 cm. Circumferential wall thickening with a small amount of pneumatosis ap pears stable. No free air or free fluid. The lobular fluid collection in the left gluteal subcutaneous tissues is now more included on the kym ges, appearing larger than on the most recent CT exam. IMPRESSION: 1. Persistent thecal distention/impaction, with circumferential wall thickening of the rectum and sm all amount of pneumatosis. Appearance of stercoral proctitis. 2. Nonobstructing right renal calculus is stable. 3. Chronic obstructive pulmonary disease. 4. Atherosclerosis. 5. Fibroid involvement of the uterus appears stable. POS: RESHMA
[2018-04-28 13:41] LABS: Actual Bicarbonate (HCO3a) 28.8 mEq/L (22-28); CO2 Tension 39.6 mmHg (35.0-45.0); Calcium, Ionized 1.09 mmol/L (1.12-1.30); Carboxyhemoglobin (COHb) 1.2 gm% (0.0-3.0); Hemoglobin (Hb) 14.2 g/dL (12.0-16.0); Potassium - ABG Lab 3.56 mmol/L (3.70-5.30); pH, Arterial 7.48 (7.35-7.45)
[2018-04-28 13:43] LABS: O2 Tension (PaO2) 59.5 mmHg (> 70.0)
[2018-04-28 13:44] LABS: Puncture Site RR
[2018-04-28] MEDS: metroNIDAZOLE 500 MG in Premix Bag 1 BAG IVPB SCH ×2 (14:41→21:45)
[2018-04-28 15:07] VITALS: BMI 32.2
[2018-04-29 05:20] LABS: #Lymphocytes 0.7 thou/uL (1.20-3.40); #Monocytes 1.1 thou/uL (0.11-0.59); #Neutrophils 12.5 thou/uL (1.40-6.50); %Basophils 0.2 % (0.0-1.0); %Eosinophils 0.1 % (0.0-10.0); %Lymphocytes 4.5 % (21.0-51.0); %Monocytes 7.7 % (0.0-10.0); %Neutrophils 87.4 % (42.0-75.0); Hemoglobin 12.1 g/dL (12.0-16.0); Mean Corpuscular HGB CONC 33.2 g/dL (32.0-36.0); Mean Corpuscular Hemoglobin 29.6 pg (27.0-31.0); Mean Platelet Volume 7.6 fL (7.4-10.4); Platelet Count 274 thou/uL (130-400); RBC Distribution Width 13.3 % (11.5-14.5); Red Blood Cell (RBC) Count 4.09 mill/uL (4.20-5.40); White Blood Cell (WBC) Count 14.3 thou/uL (4.8-10.8)
[2018-04-29] MEDS: metroNIDAZOLE 500 MG in Premix Bag 1 BAG IVPB SCH ×3 (05:30→20:58)
[2018-04-29 05:41] LABS: ALT (SGPT) 15 U/L (8-55); AST (SGOT) 23 U/L (5-34); Albumin 3.2 g/dL (3.4-4.8); Alkaline Phosphatase 59 U/L (40-150); Anion Gap 17 mmol/L (10-20); BUN (Urea Nitrogen) 30 mg/dL (9.8-20.1); Bilirubin, Total 0.4 mg/dL (0.2-1.2); Calc. Creatinine Clearance 50 mL/min (70-130); Calcium 8.6 mg/dL (7.8-10.44); Carbon Dioxide 25 mmol/L (23-31); Chloride 97 mmol/L (98-107); Estimated GFR-MDRD 36; Globulin 2.6 g/dL (2.4-3.5); Glucose 80 mg/dL (83-110); Potassium 3.1 mmol/L (3.5-5.1); Protein, Total 5.8 g/dL (6.0-8.3); Sodium 136 mmol/L (136-145)
[2018-04-29 05:42] LABS: Lactic Acid 0.9 mmol/L (0.5-2.2)
[2018-04-29 06:03] LABS: Syphilis Antibody Nonreactive (Nonreactive); Syphilis Antibody Index 0.05 S/CO (<1.00 Non-Reactive)
[2018-04-29] MEDS: Levothyroxine Sodium 100 MCG TAB PO SCH (06:21)
--- NOTE | 2018-04-29 09:25 | CT ---
CT BRAIN: HISTORY: Lethargy. FINDINGS: Noncontrast enhanced CT images of the brain obtained. Comparison is made to previous exam from 2018. Noncontrast enhanced CT images of the brain demonstrate diffuse cortical atrophy and deep white matte r ischemic changes. NO evidence of acute intracranial masses, hemorrhages, strokes, or contusions se en. Ventricles are of normal size. IMPRESSION: Cortical atrophy and deep white matter ischemic changes. No acute intracranial pathology is seen. POS: RESHMA
[2018-04-29] MEDS: INSULIN GLARGINE SC SCH (10:25)
[2018-04-29] MEDS: PRE FILLED SC SCH (10:25)
[2018-04-29] MEDS: Enoxaparin Sodium 40 MG/0.4 ML SYRINGE SC SCH (10:35)
--- NOTE | 2018-04-29 10:38 | PDOC.PN ---
- Subjective Encounter Start Date: 04/29/18 Encounter Start Time: 09:10 Patient seen and examined. No new complaints. No overnight events - Objective Resuscitation Status - Order Detail: 04/24/18 09:10 Resuscitation Status Routine Co-Sign Provider: Resuscitation Status: DNAR: NO Resuscitation Discussed with: and patient MAR Reviewed: Yes Vital Signs & Weight: Vital Signs (12 hours) Temp Pulse Resp BP Pulse Ox 04/29/18 07:31 99.1 F 83 22 H 133/54 L 100 04/29/18 04:00 99.2 F 81 20 157/71 H 97 04/29/18 00:00 99.1 F 82 20 117/49 L 100 Weight Admit Weight 211 lb Weight 206 lb I&O: 04/28/18 04/29/18 04/30/18 06:59 06:59 06:59 Intake Total 320 450 Output Total 400 Balance -80 450 Result Diagrams: 04/29/18 05:09 04/29/18 05:09 Additional Labs: Accuchecks 04/29/18 04/28/18 04/28/18 04:17 20:56 16:53 POC Glucose 87 105 104 04/28/18 12:27 POC Glucose 111 H Phys Exam - Physical Examination Constitutional: NAD HEENT: PERRLA, moist MMs, sclera anicteric Neck: no JVD, supple Respiratory: no wheezing, no rales, no rhonchi Cardiovascular: RRR, no significant murmur, no rub Gastrointestinal: soft, non-tender, no distention, positive bowel sounds Musculoskeletal: no edema, pulses present Neurological: non-focal, normal sensation Lymphatic: no nodes Psychiatric: normal affect Skin: no rash, normal turgor Dx/Plan (1) Acute on chronic combined systolic and diastolic ACC/AHA stage C congestive heart failure Code(s): I50.43 - ACUTE ON CHRONIC COMBINED SYSTOLIC AND DIASTOLIC HRT FAIL Status: Acute (2) Constipation Code(s): K59.00 - CONSTIPATION, UNSPECIFIED Status: Acute (3) Hyponatremia Code(s): E87.1 - HYPO-OSMOLALITY AND HYPONATREMIA Status: Acute Comment: (4) UTI (urinary tract infection) Status: Acute Qualifiers: Urinary tract infection type: acute cystitis Hematuria presence: without hematuria Qualified Code(s): N30.00 - Acute cystitis without hematuria (5) CAD (coronary artery disease) Code(s): I25.10 - ATHSCL HEART DISEASE OF [place] CORONARY ARTERY W/O ANG PCTRS Status: Chronic Qualifiers: Coronary Disease-Associated Artery/Lesion type: bypass graft [place] vs. 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 (7) Dyslipidemia Code(s): E78.5 - HYPERLIPIDEMIA, UNSPECIFIED Status: Chronic (8) HTN (hypertension) Code(s): I10 - ESSENTIAL (PRIMARY) HYPERTENSION Status: Chronic Qualifiers: Hypertension type: essential hypertension (9) Hypothyroidism Code(s): E03.9 - HYPOTHYROIDISM, UNSPECIFIED Status: Chronic Qualifiers: Hypothyroidism type: unspecified Qualified Code(s): E03.9 - Hypothyroidism , unspecified (10) Severe mitral regurgitation Code(s): I34.0 - NONRHEUMATIC MITRAL (VALVE) INSUFFICIENCY Status: Chronic (11) Severe tricuspid regurgitation Code(s): I07.1 - RHEUMATIC TRICUSPID INSUFFICIENCY Status: Chronic (12) Proctitis Code(s): K62.89 - OTHER SPECIFIED DISEASES OF ANUS AND RECTUM Status: Acute Comment: sterocoral proctitis - Plan cont current plan of care, plan discussed w/ family, continue antibiotics * continue levaquin and flagyl * overall stable and improving * still her oral intake is concern * discussed with * will monitor today. * repeat labs tomorrow Review of Systems - Review of Systems Other: not reliable with pt due to her level of cognitive status - Medications/Allergies Allergies/Adverse Reactions: Allergies Allergy/AdvReac Type Severity Reaction Status Date / Time acetaminophen Allergy Verified 04/24/18 16:40 [From Tylenol-Codeine #3] benzonatate Allergy Verified 04/24/18 16:40 [From Tessalon Perles] cephalexin monohydrate Allergy Verified 04/24/18 16:40 [From Keflex] codeine Allergy Verified 04/24/18 16:40 gabapentin Allergy Verified 04/24/18 16:40 metformin Allergy pt doesn't Verified 04/24/18 16:40 like it morphine Allergy Verified 04/24/18 16:40 Medications: Current Medications Acidophilus (Floranex) 1 tab PO DAILY [facility] Last Admin: 04/28/18 09:07 Dose: 1 tab Artificial Tears (Tears Naturale) 2 drop EA EYE PRN PRN PRN Reason: Dry Eyes Ascorbic Acid (Vitamin C) 1,000 mg PO DAILY [facility] Last Admin: 04/28/18 09:07 Dose: 1,000 mg Aspirin (Aspirin Chewable) 81 mg PO DAILY [facility] Last Admin: 04/28/18 09:07 Dose: 81 mg Bisacodyl (Dulcolax) 10 mg [place] DAILYPRN PRN PRN Reason: Constipation Calcium Polycarbophil (Fibercon) 625 mg PO DAILY [facility] Last Admin: 04/28/18 09:18 Dose: 625 mg Carvedilol (Coreg) 12.5 mg PO DAILY [facility] Last Admin: 04/28/18 09:05 Dose: 12.5 mg Cholecalciferol (Vitamin D3) 2,000 units PO DAILY [facility] Last Admin: 04/28/18 09:07 Dose: 2,000 units Clopidogrel Bisulfate (Plavix) 75 mg PO QAM [facility] Last Admin: 04/28/18 09:17 Dose: 75 mg Dextrose/Water (Dextrose 50%) 25 gm SLOW IVP PRN PRN PRN Reason: Hypoglycemia Last Admin: 04/27/18 16:36 Dose: 25 gm Docusate Sodium (Colace) 100 mg PO BID [facility] Last Admin: 04/28/18 21:40 Dose: 100 mg Enoxaparin Sodium (Lovenox) 40 mg SC 0900 [facility] Last Admin: 04/29/18 10:35 Dose: 40 mg Glucagon (Glucagon) 1 mg IM PRN PRN PRN Reason: Hypoglycemia Guaifenesin (Robitussin Sf) 200 mg PO Q4H PRN PRN Reason: Cough Hydralazine HCl (Apresoline) 10 mg SLOW IVP Q4H PRN PRN Reason: .SBP >180 Last Admin: 04/27/18 18:46 Dose: 10 mg Dextrose/Water (D5w) 1,000 mls @ 0 mls/hr IV .Q0M PRN PRN Reason: Hypoglycemia Insulin Glargine 35 units/ (Miscellaneous Medication) 0.35 mls @ 0 mls/hr SC DAILY [facility] Last Admin: 04/29/18 10:25 Dose: Not Given Levofloxacin 500 mg/ Device 100 mls @ 100 mls/hr IVPB Q24HR [facility] Last Admin: 04/29/18 10:35 Dose: 100 mls Metronidazole 500 mg/ Device 100 mls @ 100 mls/hr IVPB Q8HR [facility] Last Admin: 04/29/18 05:30 Dose: 100 mls Insulin Human Lispro (Humalog) 0 units SC .MILD SLIDING SCALE PRN PRN Reason: Mild Correctional Scale Insulin Human Lispro (Humalog) 0 units SC .BEDTIME SLIDING SC PRN PRN Reason: Bedtime Correctional Scale Ketorolac Tromethamine (Toradol) 15 mg IVP Q6H PRN PRN Reason: Pain Stop: 05/02/18 15:24 Last Admin: 04/27/18 16:40 Dose: 15 mg Levothyroxine Sodium (Synthroid) 100 mcg PO 0600 [facility] Last Admin: 04/29/18 06:21 Dose: Not Given Loperamide HCl (Imodium) 2 mg PO PRN PRN PRN Reason: Diarrhea/Loose Stools Loratadine (Claritin) 10 mg PO DAILYPRN PRN PRN Reason: Sinus Symptoms Mineral Oil/White Petrolatum (Eucerin Cream) 0 gm TOP BIDPRN PRN PRN Reason: Dry Skin Multivitamins (Theragran) 1 tab PO DAILY [facility] Last Admin: 04/28/18 09:08 Dose: 1 tab Ondansetron HCl (Zofran Odt) 4 mg PO Q6H PRN PRN Reason: Nausea/Vomiting Ondansetron HCl (Zofran) 4 mg IVP Q6H PRN PRN Reason: Nausea/Vomiting Pantoprazole Sodium (Protonix) 40 mg PO DAILY [facility] Last Admin: 04/28/18 09:08 Dose: 40 mg Polyethylene Glycol (Miralax) 17 gm PO BID [facility] Last Admin: 04/28/18 21:40 Dose: Not Given Senna (Senokot) 2 tab PO BID [facility] Last Admin: 04/28/18 21:40 Dose: 2 tab Sodium Chloride ([place] Nasal [place] 0.65%) 0 ml EA NARE QIDPRN PRN PRN Reason: Nasal Congestion Sodium Chloride (Flush - Normal Saline) 10 ml IVF Q12HR [facility] Last Admin: 04/28/18 21:41 Dose: 10 ml Sodium Chloride (Flush - Normal Saline) 10 ml IVF PRN PRN PRN Reason: Saline Flush Tramadol HCl (Ultram) 50 mg PO Q6H PRN PRN Reason: Pain 4-6 Last Admin: 04/27/18 02:44 Dose: 50 mg
[2018-04-29] MEDS: Ascorbic Acid 500 mg Chewable Tablet PO SCH (10:43)
[2018-04-29] MEDS: Docusate 100 MG CAP PO SCH ×2 (10:44→20:58)
[2018-04-29] MEDS: Calcium Polycarbophil 625 MG TAB PO SCH (10:44)
[2018-04-29] MEDS: Clopidogrel Bisulfate 75 MG TAB PO SCH (10:44)
[2018-04-29] MEDS: Lactinex Tablet PO SCH (10:44)
[2018-04-29] MEDS: Carvedilol 25 MG TAB PO SCH (10:44)
[2018-04-29] MEDS: Multivit, Therapeutic 1 TAB PO SCH (10:45)
[2018-04-29] MEDS: Polyethylene Glycol 3350 17 GM Packet PO SCH ×2 (10:45→20:58)
[2018-04-29] MEDS: Senokot 8.6 MG TAB PO SCH ×2 (10:45→20:57)
[2018-04-29] MEDS: traMADol HCl 50 MG TAB PO PRN (20:53)
[2018-04-30] MEDS: metroNIDAZOLE 500 MG in Premix Bag 1 BAG IVPB SCH ×3 (05:29→21:32)
[2018-04-30] MEDS: Levothyroxine Sodium 100 MCG TAB PO SCH (05:29)
[2018-04-30 07:38] LABS: #Eosinphils 0.1 thou/uL (0.0-0.7); #Lymphocytes 0.9 thou/uL (1.20-3.40); #Monocytes 1.2 thou/uL (0.11-0.59); #Neutrophils 11.5 thou/uL (1.40-6.50); %Basophils 0.3 % (0.0-1.0); %Eosinophils 0.9 % (0.0-10.0); %Lymphocytes 6.6 % (21.0-51.0); %Monocytes 8.7 % (0.0-10.0); %Neutrophils 83.6 % (42.0-75.0); Hemoglobin 12.4 g/dL (12.0-16.0); Mean Corpuscular HGB CONC 32.7 g/dL (32.0-36.0); Mean Corpuscular Hemoglobin 30.3 pg (27.0-31.0); Mean Corpuscular Volume 92.8 fL (78.0-98.0); Mean Platelet Volume 8.2 fL (7.4-10.4); Platelet Count 300 thou/uL (130-400); RBC Distribution Width 13.3 % (11.5-14.5); Red Blood Cell (RBC) Count 4.08 mill/uL (4.20-5.40); White Blood Cell (WBC) Count 13.8 thou/uL (4.8-10.8)
[2018-04-30 07:55] LABS: Anion Gap 18 mmol/L (10-20); BUN (Urea Nitrogen) 34 mg/dL (9.8-20.1); Calc. Creatinine Clearance 57 mL/min (70-130); Calcium 9.1 mg/dL (7.8-10.44); Carbon Dioxide 25 mmol/L (23-31); Chloride 101 mmol/L (98-107); Estimated GFR-MDRD 43; Glucose 76 mg/dL (83-110); Potassium 3.4 mmol/L (3.5-5.1); Sodium 141 mmol/L (136-145)
[2018-04-30] MEDS: Calcium Polycarbophil 625 MG TAB PO SCH ×2 (08:30→08:34)
[2018-04-30] MEDS: Carvedilol 25 MG TAB PO SCH (08:31)
[2018-04-30] MEDS: Clopidogrel Bisulfate 75 MG TAB PO SCH (08:31)
[2018-04-30] MEDS: Senokot 8.6 MG TAB PO SCH ×2 (08:31→21:10)
[2018-04-30] MEDS: Ascorbic Acid 500 mg Chewable Tablet PO SCH (08:32)
[2018-04-30] MEDS: Docusate 100 MG CAP PO SCH ×2 (08:32→21:16)
[2018-04-30] MEDS: Multivit, Therapeutic 1 TAB PO SCH (08:32)
[2018-04-30] MEDS: INSULIN GLARGINE SC SCH (08:33)
[2018-04-30] MEDS: PRE FILLED SC SCH (08:33)
[2018-04-30] MEDS: Enoxaparin Sodium 40 MG/0.4 ML SYRINGE SC SCH (08:34)
[2018-04-30] MEDS: Polyethylene Glycol 3350 17 GM Packet PO SCH ×2 (08:34→21:16)
[2018-04-30] MEDS: Lactinex Tablet PO SCH (09:19)
--- NOTE | 2018-04-30 09:50 | PDOC.PN ---
- Subjective Encounter Start Date: 04/30/18 Encounter Start Time: 08:30 Patient seen and examined. No new complaints. No overnight events - Objective Resuscitation Status - Order Detail: 04/24/18 09:10 Resuscitation Status Routine Co-Sign Provider: Resuscitation Status: DNAR: NO Resuscitation Discussed with: and patient MAR Reviewed: Yes Vital Signs & Weight: Vital Signs (12 hours) Temp Pulse Resp BP BP Pulse Ox 04/30/18 07:16 98.6 F 75 16 162/72 H 95 04/30/18 01:00 98.0 F 76 18 132/72 95 Weight Admit Weight 211 lb Weight 206 lb I&O: 04/29/18 04/30/18 05/01/18 06:59 06:59 06:59 Intake Total 450 250 Balance 450 250 Result Diagrams: 04/30/18 07:25 04/30/18 07:25 Additional Labs: Accuchecks 04/30/18 04/29/18 04/29/18 05:29 20:48 16:58 POC Glucose 86 109 102 04/29/18 11:20 POC Glucose 117 H Phys Exam - Physical Examination Constitutional: NAD HEENT: PERRLA, moist MMs, sclera anicteric Neck: no JVD, supple Respiratory: no wheezing, no rales, no rhonchi Cardiovascular: RRR, no significant murmur, no rub Gastrointestinal: soft, non-tender, no distention, positive bowel sounds Musculoskeletal: pulses present, edema present Neurological: non-focal, normal sensation Lymphatic: no nodes Psychiatric: normal affect Skin: no rash, normal turgor Dx/Plan (1) Acute on chronic combined systolic and diastolic ACC/AHA stage C congestive heart failure Code(s): I50.43 - ACUTE ON CHRONIC COMBINED SYSTOLIC AND DIASTOLIC HRT FAIL Status: Acute (2) Constipation Code(s): K59.00 - CONSTIPATION, UNSPECIFIED Status: Acute (3) Hyponatremia Code(s): E87.1 - HYPO-OSMOLALITY AND HYPONATREMIA Status: Acute Comment: (4) UTI (urinary tract infection) Status: Acute Qualifiers: Urinary tract infection type: acute cystitis Hematuria presence: without hematuria Qualified Code(s): N30.00 - Acute cystitis without hematuria (5) CAD (coronary artery disease) Code(s): I25.10 - ATHSCL HEART DISEASE OF [place] CORONARY ARTERY W/O ANG PCTRS Status: Chronic Qualifiers: Coronary Disease-Associated Artery/Lesion type: bypass graft [place] vs. transplanted heart: [place] heart Associated angina: without angina Qualified Code(s): I25.810 - Atherosclerosis of coronary artery bypass graft(s) without angina pectoris (6) DM type 2 (diabetes mellitus, type 2) Status: Chronic Qualifiers: Diabetes mellitus predatory animal exterminator insulin use: with correction use Diabetes mellitus complication status: with unspecified complications Qualified Code(s) : E11.8 - Type 2 diabetes mellitus with unspecified complications; Z79.4 - penitentiary (current) use of insulin Comment: continue on SSI, as needed. (7) Dyslipidemia Code(s): E78.5 - HYPERLIPIDEMIA, UNSPECIFIED Status: Chronic (8) HTN (hypertension) Code(s): I10 - ESSENTIAL (PRIMARY) HYPERTENSION Status: Chronic Qualifiers: Hypertension type: essential hypertension (9) Hypothyroidism Code(s): E03.9 - HYPOTHYROIDISM, UNSPECIFIED Status: Chronic Qualifiers: Hypothyroidism type: unspecified Qualified Code(s): E03.9 - Hypothyroidism , unspecified (10) Severe mitral regurgitation Code(s): I34.0 - NONRHEUMATIC MITRAL (VALVE) INSUFFICIENCY Status: Chronic (11) Severe tricuspid regurgitation Code(s): I07.1 - RHEUMATIC TRICUSPID INSUFFICIENCY Status: Chronic (12) Proctitis Code(s): K62.89 - OTHER SPECIFIED DISEASES OF ANUS AND RECTUM Status: Acute Comment: sterocoral proctitis - Plan cont current plan of care, plan discussed w/ family, continue antibiotics * medication reviewed as below * symptomatic treatment * pt is improving * will consider oral levaquin and flagyl for 5 more days * possible discharge today. Review of Systems - Review of Systems Other: not reliable with pt due to his level of cognitive status - Medications/Allergies Allergies/Adverse Reactions: Allergies Allergy/AdvReac Type Severity Reaction Status Date / Time acetaminophen Allergy Verified 04/24/18 16:40 [From Tylenol-Codeine #3] benzonatate Allergy Verified 04/24/18 16:40 [From Tessalon Perles] cephalexin monohydrate Allergy Verified 04/24/18 16:40 [From Keflex] codeine Allergy Verified 04/24/18 16:40 gabapentin Allergy Verified 04/24/18 16:40 metformin Allergy pt doesn't Verified 04/24/18 16:40 like it morphine Allergy Verified 04/24/18 16:40 Medications: Current Medications Acidophilus (Floranex) 1 tab PO DAILY [facility] Last Admin: 04/30/18 09:19 Dose: 1 tab Artificial Tears (Tears Naturale) 2 drop EA EYE PRN PRN PRN Reason: Dry Eyes Ascorbic Acid (Vitamin C) 1,000 mg PO DAILY [facility] Last Admin: 04/30/18 08:32 Dose: 1,000 mg Aspirin (Aspirin Chewable) 81 mg PO DAILY [facility] Last Admin: 04/30/18 08:33 Dose: 81 mg Bisacodyl (Dulcolax) 10 mg [place] DAILYPRN PRN PRN Reason: Constipation Calcium Polycarbophil (Fibercon) 625 mg PO DAILY [facility] Last Admin: 04/30/18 08:34 Dose: 625 mg Carvedilol (Coreg) 12.5 mg PO DAILY [facility] Last Admin: 04/30/18 08:31 Dose: 12.5 mg Cholecalciferol (Vitamin D3) 2,000 units PO DAILY [facility] Last Admin: 04/30/18 08:30 Dose: 2,000 units Clopidogrel Bisulfate (Plavix) 75 mg PO QAM [facility] Last Admin: 04/30/18 08:31 Dose: 75 mg Dextrose/Water (Dextrose 50%) 25 gm SLOW IVP PRN PRN PRN Reason: Hypoglycemia Last Admin: 04/27/18 16:36 Dose: 25 gm Docusate Sodium (Colace) 100 mg PO BID [facility] Last Admin: 04/30/18 08:32 Dose: 100 mg Enoxaparin Sodium (Lovenox) 40 mg SC 0900 [facility] Last Admin: 04/30/18 08:34 Dose: 40 mg Glucagon (Glucagon) 1 mg IM PRN PRN PRN Reason: Hypoglycemia Guaifenesin (Robitussin Sf) 200 mg PO Q4H PRN PRN Reason: Cough Hydralazine HCl (Apresoline) 10 mg SLOW IVP Q4H PRN PRN Reason: .SBP >180 Last Admin: 04/27/18 18:46 Dose: 10 mg Dextrose/Water (D5w) 1,000 mls @ 0 mls/hr IV .Q0M PRN PRN Reason: Hypoglycemia Insulin Glargine 35 units/ (Miscellaneous Medication) 0.35 mls @ 0 mls/hr SC DAILY [facility] Last Admin: 04/30/18 08:33 Dose: Not Given Levofloxacin 500 mg/ Device 100 mls @ 100 mls/hr IVPB Q24HR [facility] Last Admin: 04/29/18 10:35 Dose: 100 mls Metronidazole 500 mg/ Device 100 mls @ 100 mls/hr IVPB Q8HR [facility] Last Admin: 04/30/18 05:29 Dose: 100 mls Insulin Human Lispro (Humalog) 0 units SC .MILD SLIDING SCALE PRN PRN Reason: Mild Correctional Scale Insulin Human Lispro (Humalog) 0 units SC .BEDTIME SLIDING SC PRN PRN Reason: Bedtime Correctional Scale Levothyroxine Sodium (Synthroid) 100 mcg PO 0600 [facility] Last Admin: 04/30/18 05:29 Dose: Not Given Loperamide HCl (Imodium) 2 mg PO PRN PRN PRN Reason: Diarrhea/Loose Stools Loratadine (Claritin) 10 mg PO DAILYPRN PRN PRN Reason: Sinus Symptoms Mineral Oil/White Petrolatum (Eucerin Cream) 0 gm TOP BIDPRN PRN PRN Reason: Dry Skin Multivitamins (Theragran) 1 tab PO DAILY [facility] Last Admin: 04/30/18 08:32 Dose: 1 tab Ondansetron HCl (Zofran Odt) 4 mg PO Q6H PRN PRN Reason: Nausea/Vomiting Ondansetron HCl (Zofran) 4 mg IVP Q6H PRN PRN Reason: Nausea/Vomiting Pantoprazole Sodium (Protonix) 40 mg PO DAILY [facility] Last Admin: 04/30/18 08:32 Dose: 40 mg Polyethylene Glycol (Miralax) 17 gm PO BID [facility] Last Admin: 04/30/18 08:34 Dose: 17 gm Senna (Senokot) 2 tab PO BID [facility] Last Admin: 04/30/18 08:31 Dose: 2 tab Sodium Chloride ([place] Nasal [place] 0.65%) 0 ml EA NARE QIDPRN PRN PRN Reason: Nasal Congestion Sodium Chloride (Flush - Normal Saline) 10 ml IVF Q12HR [facility] Last Admin: 04/30/18 08:37 Dose: 10 ml Sodium Chloride (Flush - Normal Saline) 10 ml IVF PRN PRN PRN Reason: Saline Flush Tramadol HCl (Ultram) 50 mg PO Q6H PRN PRN Reason: Pain 4-6 Last Admin: 04/29/18 20:53 Dose: 50 mg
--- NOTE | 2018-04-30 11:05 | DIS ---
DATE OF ADMISSION: 04/26/2018 DATE OF DISCHARGE: 04/30/2018 PRIMARY CARE PHYSICIAN: Chip Gibson MD DISCHARGE DISPOSITION: [facility]. PRIMARY DISCHARGE DIAGNOSES: 1. Acute on chronic combined systolic and diastolic heart failure. 2. Fecal impaction with severe constipation. 3. Stercoral proctitis. 4. Hyponatremia. 5. Urinary tract infection. SECONDARY DISCHARGE DIAGNOSES: 1. Severe tricuspid regurgitation. 2. Severe mitral regurgitation. 3. Hypothyroidism. 4. Hypertension. 5. Dyslipidemia. 6. Diabetes type 2. 7. Coronary artery disease. 8. Chronic physical deconditioning. 9. Chronic combined systolic and diastolic heart failure. 10. Obesity with BMI 32. PRIMARY PROCEDURE/OPERATION: None. RADIOLOGICAL INVESTIGATION: Chest x-ray showed pulmonary vascular congestion. CT brain negative for any acute intracranial process. Ultrasound negative for any DVT. Echocardiography showed EF 40%-45%, severe mitral and aortic regurgitation, severe tricuspid regurgitation. Chest, abdomen and pelvis CT scan showed stercoral proctitis. CT brain negative for any acute intracranial process. Abdomen x-ray showed constipation. SIGNIFICANT LABORATORY DATA: WBC 13.8, hemoglobin 12.4, platelet 300. Sodium 141, potassium 3.4, BUN 34, creatinine 1.22, calcium 9.1. Urinalysis suggestive of UTI. Syphilis negative. DISCHARGE MEDICATIONS: 1. Vitamin C 1000 mg p.o. daily. 2. Aspirin 81 mg daily. 3. Vitamin D3 with 2000 units p.o. daily. 4. Cranberry one tablet daily. 5. Tresiba 35 units subcu daily. 6. Probiotic one capsule daily. 7. Levothyroxine 100 mcg p.o. daily. 8. Claritin 10 mg bedtime p.r.n. 9. Melatonin 3 mg p.o. bedtime p.r.n. 10. Multivitamin one capsule daily. 11. Aleve 220 mg p.o. bedtime p.r.n. 12. Protonix 40 mg daily. 13. Trazodone 25 mg p.o. bedtime p.r.n. 14. Coreg 6.25 mg b.i.d. 15. Plavix 75 mg p.o. daily. 16. Colace 100 mg b.i.d. 17. Lasix 20 mg p.o. daily. 18. Levaquin 500 mg p.o. daily for 5 days. 19. Flagyl 500 mg p.o. t.i.d. for 5 days. 20. Lisinopril 5 mg daily. 21. MiraLAX 17 g p.o. b.i.d. CONTRAINDICATION: None. CODE STATUS: DNR. INPATIENT QUARRY WORKER: None. ALLERGIES: TYLENOL, TESSALON, KEFLEX. DISCHARGE PLAN: Posthospital, the patient is discharged back to [facility] with home health. HOSPITAL COURSE: A 77-year-old female, who was admitted by Dr. Cecilia Villalta, please see his H and P for further details. Initially, patient was admitted for worsening CHF as well as she was having altered mental status as well as severe constipation. Initial presentation of bilateral lower extremity edema and chest x-ray consistent with acute on chronic congestive heart failure. Echocardiography confirmed a low EF as well as valvular pathology. The patient was treated with Lasix with significant improvement. While in hospital, we noted that the patient was having significant discomfort and she was deteriorating, that is why we did hallman-CT of her body and found with stercoral proctitis and fecal impaction, which was treated with Fleet Enema several times as well as stool softener and empiric antibiotic therapy with Levaquin and Flagyl. Her urinalysis was also suggestive of UTI, but culture was negative. The patient's labs test is improving. Her renal function is now stabilizing. Her electrolytes were corrected. This patient is up to her baseline level. She has problem with swallowing, but she is tolerating modified diet as per dietary recommendation. At this point, the patient does have 24-hour caregiver at [facility] and the patient's does not have any alternative plan to send her to intermediate. The patient is up to her baseline level. The patient is seen and examined at bedside today. Please see my progress note from today for further detail. Overall patient is medically stable for discharge. Job ID: [id number]
[2018-04-30] MEDS: traMADol HCl 50 MG TAB PO PRN ×2 (15:18→23:10)
[2018-05-01] MEDS: metroNIDAZOLE 500 MG in Premix Bag 1 BAG IVPB SCH ×2 (05:29→13:58)
[2018-05-01] MEDS: Levothyroxine Sodium 100 MCG TAB PO SCH (05:29)
[2018-05-01 07:53] VITALS: BP 158/71; TEMP 98.6
[2018-05-01] MEDS: Senokot 8.6 MG TAB PO SCH (08:04)
[2018-05-01] MEDS: Carvedilol 25 MG TAB PO SCH (08:05)
[2018-05-01] MEDS: Docusate 100 MG CAP PO SCH (08:05)
[2018-05-01] MEDS: Clopidogrel Bisulfate 75 MG TAB PO SCH (08:06)
[2018-05-01] MEDS: traMADol HCl 50 MG TAB PO PRN (08:07)
[2018-05-01] MEDS: Ascorbic Acid 500 mg Chewable Tablet PO SCH (08:07)
[2018-05-01] MEDS: Multivit, Therapeutic 1 TAB PO SCH (08:07)
[2018-05-01] MEDS: Lactinex Tablet PO SCH (08:08)
[2018-05-01] MEDS: Enoxaparin Sodium 40 MG/0.4 ML SYRINGE SC SCH (08:08)
[2018-05-01] MEDS: INSULIN GLARGINE SC SCH (08:09)
[2018-05-01] MEDS: PRE FILLED SC SCH (08:09)
[2018-05-01] MEDS: Polyethylene Glycol 3350 17 GM Packet PO SCH (08:10)
--- NOTE | 2018-05-01 09:51 | PDOC.PN ---
- Subjective Encounter Start Date: 05/01/18 Encounter Start Time: 08:40 pt is still not overall good enough to consider discharge as concerned about readmission, she still has gaseous distention, she is not eating enough and at risk for hypoglycemia, no fever - Objective Resuscitation Status - Order Detail: 04/24/18 09:10 Resuscitation Status Routine Co-Sign Provider: Resuscitation Status: DNAR: NO Resuscitation Discussed with: and patient MAR Reviewed: Yes Vital Signs & Weight: Vital Signs (12 hours) Temp Pulse Resp BP BP Pulse Ox 05/01/18 07:52 98.6 F 76 20 158/71 H 97 05/01/18 05:43 99.2 F 76 20 161/80 H 99 04/30/18 21:52 100 Weight Admit Weight 211 lb Weight 206 lb I&O: 04/30/18 05/01/18 05/02/18 06:59 06:59 06:59 Intake Total 250 600 Balance 250 600 Result Diagrams: 04/30/18 07:25 04/30/18 07:25 Additional Labs: Accuchecks 04/30/18 04/30/18 04/30/18 20:13 15:26 10:50 POC Glucose 118 H 122 H 112 H Phys Exam - Physical Examination Constitutional: NAD HEENT: PERRLA, sclera anicteric Neck: no JVD, supple Respiratory: no wheezing, no rales, no rhonchi Cardiovascular: RRR, no significant murmur, no rub Gastrointestinal: soft gaseous distention Musculoskeletal: no edema, pulses present Lymphatic: no nodes Skin: no rash, normal turgor Dx/Plan (1) Acute on chronic combined systolic and diastolic ACC/AHA stage C congestive heart failure Code(s): I50.43 - ACUTE ON CHRONIC COMBINED SYSTOLIC AND DIASTOLIC HRT FAIL Status: Acute (2) Constipation Code(s): K59.00 - CONSTIPATION, UNSPECIFIED Status: Acute (3) Hyponatremia Code(s): E87.1 - HYPO-OSMOLALITY AND HYPONATREMIA Status: Acute Comment: (4) UTI (urinary tract infection) Status: Acute Qualifiers: Urinary tract infection type: acute cystitis Hematuria presence: without hematuria Qualified Code(s): N30.00 - Acute cystitis without hematuria (5) CAD (coronary artery disease) Code(s): I25.10 - ATHSCL HEART DISEASE OF [place] CORONARY ARTERY W/O ANG PCTRS Status: Chronic Qualifiers: Coronary Disease-Associated Artery/Lesion type: bypass graft [place] vs. transplanted heart: [place] heart Associated angina: without angina Qualified Code(s): I25.810 - Atherosclerosis of coronary artery bypass graft(s) without angina pectoris (6) DM type 2 (diabetes mellitus, type 2) Status: Chronic Qualifiers: Diabetes mellitus long term acute care registered nurse insulin use: with chcf use Diabetes mellitus complication status: with unspecified complications Qualified Code(s) : E11.8 - Type 2 diabetes mellitus with unspecified complications; Z79.4 - care home (current) use of insulin Comment: continue on SSI, as needed. (7) Dyslipidemia Code(s): E78.5 - HYPERLIPIDEMIA, UNSPECIFIED Status: Chronic (8) HTN (hypertension) Code(s): I10 - ESSENTIAL (PRIMARY) HYPERTENSION Status: Chronic Qualifiers: Hypertension type: essential hypertension (9) Hypothyroidism Code(s): E03.9 - HYPOTHYROIDISM, UNSPECIFIED Status: Chronic Qualifiers: Hypothyroidism type: unspecified Qualified Code(s): E03.9 - Hypothyroidism , unspecified (10) Severe mitral regurgitation Code(s): I34.0 - NONRHEUMATIC MITRAL (VALVE) INSUFFICIENCY Status: Chronic (11) Severe tricuspid regurgitation Code(s): I07.1 - RHEUMATIC TRICUSPID INSUFFICIENCY Status: Chronic (12) Proctitis Code(s): K62.89 - OTHER SPECIFIED DISEASES OF ANUS AND RECTUM Status: Acute Comment: sterocoral proctitis - Plan cont current plan of care, plan discussed w/ family, continue antibiotics * will dc lantus as risk for hypoglycemia * will consult palliative care * continue to monitor for now * medication reviewed as below * symptomatic treatment. Review of Systems - Review of Systems Other: not reliable with pt due to cognitive status - Medications/Allergies Allergies/Adverse Reactions: Allergies Allergy/AdvReac Type Severity Reaction Status Date / Time acetaminophen Allergy Verified 04/24/18 16:40 [From Tylenol-Codeine #3] benzonatate Allergy Verified 04/24/18 16:40 [From Tessalon Perles] cephalexin monohydrate Allergy Verified 04/24/18 16:40 [From Keflex] codeine Allergy Verified 04/24/18 16:40 gabapentin Allergy Verified 04/24/18 16:40 metformin Allergy pt doesn't Verified 04/24/18 16:40 like it morphine Allergy Verified 04/24/18 16:40 Medications: Current Medications Acidophilus (Floranex) 1 tab PO DAILY [facility] Last Admin: 05/01/18 08:08 Dose: 1 tab Artificial Tears (Tears Naturale) 2 drop EA EYE PRN PRN PRN Reason: Dry Eyes Ascorbic Acid (Vitamin C) 1,000 mg PO DAILY [facility] Last Admin: 05/01/18 08:07 Dose: 1,000 mg Aspirin (Aspirin Chewable) 81 mg PO DAILY [facility] Last Admin: 05/01/18 08:06 Dose: 81 mg Bisacodyl (Dulcolax) 10 mg [place] DAILYPRN PRN PRN Reason: Constipation Calcium Polycarbophil (Fibercon) 625 mg PO DAILY [facility] Last Admin: 04/30/18 08:34 Dose: 625 mg Carvedilol (Coreg) 12.5 mg PO DAILY [facility] Last Admin: 05/01/18 08:05 Dose: 12.5 mg Cholecalciferol (Vitamin D3) 2,000 units PO DAILY [facility] Last Admin: 05/01/18 08:08 Dose: 2,000 units Clopidogrel Bisulfate (Plavix) 75 mg PO QAM [facility] Last Admin: 05/01/18 08:06 Dose: 75 mg Dextrose/Water (Dextrose 50%) 25 gm SLOW IVP PRN PRN PRN Reason: Hypoglycemia Last Admin: 04/27/18 16:36 Dose: 25 gm Docusate Sodium (Colace) 100 mg PO BID [facility] Last Admin: 05/01/18 08:05 Dose: 100 mg Enoxaparin Sodium (Lovenox) 40 mg SC 0900 [facility] Last Admin: 05/01/18 08:08 Dose: 40 mg Glucagon (Glucagon) 1 mg IM PRN PRN PRN Reason: Hypoglycemia Guaifenesin (Robitussin Sf) 200 mg PO Q4H PRN PRN Reason: Cough Hydralazine HCl (Apresoline) 10 mg SLOW IVP Q4H PRN PRN Reason: .SBP >180 Last Admin: 04/27/18 18:46 Dose: 10 mg Dextrose/Water (D5w) 1,000 mls @ 0 mls/hr IV .Q0M PRN PRN Reason: Hypoglycemia Insulin Glargine 35 units/ (Miscellaneous Medication) 0.35 mls @ 0 mls/hr SC DAILY [facility] Last Admin: 05/01/18 08:09 Dose: Not Given Levofloxacin 500 mg/ Device 100 mls @ 100 mls/hr IVPB Q24HR [facility] Last Admin: 04/30/18 12:34 Dose: 100 mls Metronidazole 500 mg/ Device 100 mls @ 100 mls/hr IVPB Q8HR [facility] Last Admin: 05/01/18 05:29 Dose: 100 mls Insulin Human Lispro (Humalog) 0 units SC .MILD SLIDING SCALE PRN PRN Reason: Mild Correctional Scale Insulin Human Lispro (Humalog) 0 units SC .BEDTIME SLIDING SC PRN PRN Reason: Bedtime Correctional Scale Levothyroxine Sodium (Synthroid) 100 mcg PO 0600 [facility] Last Admin: 05/01/18 05:29 Dose: 100 mcg Loperamide HCl (Imodium) 2 mg PO PRN PRN PRN Reason: Diarrhea/Loose Stools Loratadine (Claritin) 10 mg PO DAILYPRN PRN PRN Reason: Sinus Symptoms Mineral Oil/White Petrolatum (Eucerin Cream) 0 gm TOP BIDPRN PRN PRN Reason: Dry Skin Multivitamins (Theragran) 1 tab PO DAILY [facility] Last Admin: 05/01/18 08:07 Dose: 1 tab Ondansetron HCl (Zofran Odt) 4 mg PO Q6H PRN PRN Reason: Nausea/Vomiting Ondansetron HCl (Zofran) 4 mg IVP Q6H PRN PRN Reason: Nausea/Vomiting Pantoprazole Sodium (Protonix) 40 mg PO DAILY [facility] Last Admin: 05/01/18 08:09 Dose: 40 mg Polyethylene Glycol (Miralax) 17 gm PO BID [facility] Last Admin: 05/01/18 08:10 Dose: 17 gm Senna (Senokot) 2 tab PO BID [facility] Last Admin: 05/01/18 08:04 Dose: 2 tab Sodium Chloride ([place] Nasal [place] 0.65%) 0 ml EA NARE QIDPRN PRN PRN Reason: Nasal Congestion Sodium Chloride (Flush - Normal Saline) 10 ml IVF Q12HR [facility] Last Admin: 05/01/18 08:10 Dose: 10 ml Sodium Chloride (Flush - Normal Saline) 10 ml IVF PRN PRN PRN Reason: Saline Flush Tramadol HCl (Ultram) 50 mg PO Q6H PRN PRN Reason: Pain 4-6 Last Admin: 05/01/18 08:07 Dose: 50 mg
--- NOTE | 2018-05-01 12:59 | DIS ---
DATE OF ADMISSION: 04/26/2018 DATE OF DISCHARGE: 05/01/2018 PRIMARY CARE PHYSICIAN: Dr. Chip Gibson. DISCHARGE DISPOSITION: Home. PRIMARY DISCHARGE DIAGNOSES: 1. [id number] combined systolic and diastolic heart failure, severe constipation with fecal impaction. 2. Stercoral proctitis. 3. Hyponatremia. 4. Urinary tract infection. SECONDARY DISCHARGE DIAGNOSES: 1. Severe mitral regurgitation. 2. Severe tricuspid regurgitation. 3. Hypothyroidism. 4. Hypertension. 5. Dyslipidemia. 6. Diabetes, type 2. 7. Coronary artery disease. 8. Physical deconditioning. PRIMARY PROCEDURE/OPERATION: None. RADIOLOGICAL INVESTIGATION: 1. Chest x-ray showed initially pulmonary vascular congestion. CT brain negative for any acute intracranial process. Ultrasound negative for any DVT. Echocardiography showed EF 40% to 45% with severe MR and AR. 2. Abdomen x-ray showed constipation. Chest, abdomen, pelvis CT scan showed Stercoral proctitis. SIGNIFICANT LABORATORY DATA: Hemoglobin 12.4, WBC 13.8, platelets 300. Sodium 141, potassium 3.4, BUN 34, creatinine 1.22, calcium 9.1. DISCHARGE MEDICATIONS: New medication added compared to my previous discharge summary. 1. Coreg 6.25 mg p.o. b.i.d. 2. Lasix 20 mg daily. 3. Levaquin 500 mg p.o. daily. 4. Lisinopril 5 mg p.o. daily. 5. Flagyl 500 mg t.i.d. for 5 days. 6. MiraLAX 17 g p.o. b.i.d. CONTRAINDICATION: None. CODE STATUS: DNR. INPATIENT PAYROLL ANALYST: None. HOSPITAL COURSE: A 77-year-old female who was admitted for CHF exacerbation. Please see my discharge summary dictated on April 30, 2018. Subsequently, we continued while in the hospital. We monitored for another 24 hours in hospital. We also discussed with her about home hospice option and he agreed with home hospice evaluation after discharge. Palliative Care was consulted. Today, the patient decided to go home. Please see my progress note from today for further detail. Job ID: [id number]
--- NOTE | 2018-05-01 13:54 | EKG ---
Test Reason : Blood Pressure : / mmHG Vent. Rate : 073 BPM Atrial Rate : 073 BPM P-R Int : 000 ms QRS Dur : 092 ms QT Int : 400 ms P-R-T Axes : 000 066 -82 degrees QTc Int : 440 ms Sinus rhythm Septal infarct , age undetermined Abnormal ECG Confirmed by SILVANO MELO D.O. ([id number]), greeting card editor JC SONI ([id number]) on 05/01/2018 1:54:34 PM Referred By: Confirmed By:SILVANO MELO D.O.
== END 2018-05-01 14:55 | disposition home health service (06) | DRG 292 ==
LOC: ERS 03:48 → ERHOLD 05:52 → 2NO 15:53 → OBSVTOIN 04-26 14:21 → T4-A 04-26 18:01
PROVIDERS: ADMIT Internal Medicine; ATTEND Internal Medicine
DX: I11.0 Hypertensive heart disease with heart failure (principal); I69.354 Hemiplegia and hemiparesis following cerebral infarction affecting left non-dominant side; E87.1 Hypo-osmolality and hyponatremia; N39.0 Urinary tract infection, site not specified; Z51.5 Encounter for palliative care; I50.43 Acute on chronic combined systolic (congestive) and diastolic (congestive) heart failure; E78.5 Hyperlipidemia, unspecified; E03.9 Hypothyroidism, unspecified; E11.9 Type 2 diabetes mellitus without complications; H35.30 Unspecified macular degeneration; H90.5 Unspecified sensorineural hearing loss; F03.90 Unspecified dementia, unspecified severity, without behavioral disturbance, psychotic disturbance, mood disturbance, and anxiety; I25.10 Atherosclerotic heart disease of native coronary artery without angina pectoris; K59.00 Constipation, unspecified; K62.89 Other specified diseases of anus and rectum; Z66 Do not resuscitate; I08.1 Rheumatic disorders of both mitral and tricuspid valves; E66.9 Obesity, unspecified; Z68.32 Body mass index [BMI] 32.0-32.9, adult; Z88.1 Allergy status to other antibiotic agents; Z88.5 Allergy status to narcotic agent; Z88.8 Allergy status to other drugs, medicaments and biological substances; Z79.82 Long term (current) use of aspirin; Z79.899 Other long term (current) drug therapy; Z95.1 Presence of aortocoronary bypass graft
CPT/HCPCS: 36415; 36416; 51701; 70450; 71045; 71260; 74018; 74177; 80048; 80053; 81003; 81015; 82550; 82607; 82746; 82805; 83605; 83690; 83880; 84484; 85025; 86780; 93005; 93306; 96374; 96375; A4353; J0360; J1650; J1885; J1940; J1956; J3010